=== PATIENT | female | born 2000 | race Caucasian/White ===

== ENCOUNTER → 2020-05-13 08:33 | Outpatient (CLI) | payer OTHER, SELFPAY ==
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
--- NOTE | ~2020-05-13 | CT_ITS ---
EXAMINATION: CT thoracic spine wo con EXAM DATE: 05/13/2020 09:19 INDICATION: Abnormal x-ray, degenerative disc disease. TECHNIQUE: Spiral CT thoracic spine wo con was performed without contrast. Axial, coronal and sagit calista images were reviewed. The dose-length product (DLP) for this examination was 581.35 mGy-cm. The exposure was tailored according to patient size (auto mA exposure control), and iterative reconstruc tion (ASIR) was used as additional dose reduction technique. There is no prior study for comparison. FINDINGS: There are 12 thoracic rib-bearing vertebral bodies. There is minimal compression of the sup erior endplate of T10, an old minimal compression fracture. Some small Schmorl's nodes at T9-10 endpl ates. The vertebral body and disc heights are otherwise well maintained. The vertebral bodies are ali gned in the AP dimension. The neural foramen are widely patent. Central canal is patent. Paraspinal s oft tissue is unremarkable. Facet joints are unremarkable. IMPRESSION: Minimal old compression fracture superior endplate of T10 and mild T9-T10 disc disease. Reviewed, dictated and finalized at location A.
== END ==
PROVIDERS: PCP Nurse Practitioner Family; Visit Provider Nurse Practitioner Family
DX: R93.7 Abnormal findings on diagnostic imaging of other parts of musculoskeletal system (principal); Z87.311 Personal history of (healed) other pathological fracture
CPT/HCPCS: 70551; 72128

== ENCOUNTER 2020-05-13 13:21 | Outpatient (CLI) | payer OTHER, SELFPAY ==
--- NOTE | ~2020-05-13 | US_ITS ---
EXAMINATION: US pelvic complete w TV DATE: 05/13/2020 13:46 INDICATION: Pelvic pain Comparison:01/28/2018 TECHNIQUE: Multiple transabdominal and endovaginal sonographic images of the pelvis performed. FINDINGS: The uterus measures 7 x 3.2 x 4.8 cm. IUD present in the endometrium. The endometrial compl ex measures 3.5 mm. The right ovary measures 3.1 x 1.1 x 1.8 cm and the left ovary measures 3.3 x 2.9 x 3.1 cm. There ar e small follicles in each ovary. There is a complicated left ovarian cyst measuring 1.9 cm There is no free fluid in the pelvis. There are no abnormal masses seen on either side. IMPRESSION: 1. Complicated left ovarian cyst measuring 1.9 cm. Reviewed, dictated and finalized at location B.
== END 2020-05-13 13:22 ==
LOC: MICIMG 13:21
PROVIDERS: PCP Nurse Practitioner Family; Visit Provider Nurse Practitioner Family
DX: R10.2 Pelvic and perineal pain (principal); G89.29 Other chronic pain; N83.202 Unspecified ovarian cyst, left side
CPT/HCPCS: 76830; 76856

== ENCOUNTER 2021-05-28 07:46 | Outpatient (RCR) | payer OTHER, MEDICAID, SELFPAY ==
[2021-05-28] MEDS: RHO(D) IMMUNE GLOBULIN 300 MCG/2 ML SYRINGE IM (09:45)
== END 2021-05-28 07:49 | disposition home or self-care (01) ==
LOC: ANHLAB 07:46
PROVIDERS: PCP Nurse Practitioner Family; Visit Provider Obstetrics & Gynecology
DX: Z29.13 Encounter for prophylactic Rho(D) immune globulin (principal); O36.0190 Maternal care for anti-D [Rh] antibodies, unspecified trimester, not applicable or unspecified; O20.0 Threatened abortion; Z3A.00 Weeks of gestation of pregnancy not specified
CPT/HCPCS: 36415; 85461; 90384; 96372; J2790

== ENCOUNTER 2021-05-28 09:24 | Outpatient (RCR) | payer OTHER, MEDICAID, SELFPAY ==
[2021-05-21 16:56] LABS: Beta HCG Quantitative 169.09 mIU/ML
== END 2021-08-19 23:59 | disposition home or self-care (01) ==
LOC: ANHLAB 09:24
PROVIDERS: PCP Nurse Practitioner Family; Visit Provider Obstetrics & Gynecology
DX: Z29.13 Encounter for prophylactic Rho(D) immune globulin (principal); O36.0130 Maternal care for anti-D [Rh] antibodies, third trimester, not applicable or unspecified; Z3A.00 Weeks of gestation of pregnancy not specified
CPT/HCPCS: 36415; 84702; 85461

== ENCOUNTER 2021-06-02 04:41 | Emergency (ER) | payer OTHER, MEDICAID, SELFPAY ==
--- NOTE | ~2021-06-02 | US_ITS ---
EXAMINATION: US OB <= 14 weeks fetus DATE: 06/02/2021 06:32 INDICATION: Vaginal bleeding. Abdominal pain. TECHNIQUE: Real-time transabdominal and transvaginal pelvic ultrasound was performed. COMPARISON: Ultrasound 05/13/2020 FINDINGS: TRANSABDOMINAL ULTRASOUND: The uterus measures 8.4 x 4.3 x 5.9 cm. TRANSVAGINAL ULTRASOUND: There is an intrauterine gestational sac with mean diameter of 10 mm, which correlates with an estimated gestational age of 5 weeks and 4 days +/- 4 days. A yolk sac is identifi ed. No pole is identified. There is a small subchorionic hematoma. The right ovary measures 1.4 x 1.1 x 0.9 cm. The left ovary measures 2.7 x 2.2 x 2.3 cm. There is no free fluid in the pelvis. IMPRESSION: 1. Single intrauterine gestation with estimated date of delivery of 01/29/2022. 2. Small subchorionic hematoma. Reviewed, dictated and finalized at location A.
[2021-06-02 04:51] VITALS: BP 119/61; PULSE 103; RESP 18; TEMP 36.7; O2SAT 98
--- NOTE | 2021-06-02 04:57 | ED.GENADULT ---
HPI - General Adult General Chief complaint: Nausea/Vomiting/Diarrhea <DO [place] Friend Last Filed: 06/02/21 14:24> Stated complaint: Vomiting, 7 weeks preg, vaginal bleeding <Stephan Ochoa DO - Last Filed: 06/02/21 14:24> Time Seen by Provider: 06/02/21 04:49 <Stephan Ochoa DO - Last Filed: 06/02/21 14:24> Source: RN notes reviewed <Stephan Ochoa DO - Last Filed: 06/02/21 14:24> History of Present Illness HPI narrative: Patient presents emergency department from home for vaginal bleeding. Patient is G1, P0 [facility] [place] Patient states she is approximately 7 weeks she states she woke up this evening around 1230 with nausea and vomiting she states she had numerous episodes of nausea and vomiting as well as some diarrhea. She states that the last time she gone to use the restroom she had noted vaginal bleeding that was bright red in nature at that time she came in emergency department for further evaluation she states nausea is improved at this time notes mild abdominal cramping states she is not taking medication at home for the symptoms she denies any fevers or chills chest pain shortness of breath or any other symptoms. Patient states she did receive RhoGam last week as she had fallen secondary to her fall he contacted [employer] and had received RhoGam <Stephan Ochoa DO - Last Filed: 06/02/21 14:24> Related Data Home medications: Home Medications Medication Instructions Recorded Confirmed escitalopram oxalate 10 mg PO DAILY 06/02/21 <DO [place] Friend Last Filed: 06/02/21 14:24> Allergies/adverse reactions: Allergies Allergy/AdvReac Type Severity Reaction Status Date / Time Penicillins Allergy Unknown Unknown Verified 06/02/21 05:28 <Stephan Ochoa DO - Last Filed: 06/02/21 14:24> Review of Systems Review of Systems: Gen.: Denies fevers or chills ENT: Denies congestion Respiratory: Denies shortness of breath or cough CV: Denies chest pain or palpitations GI: See HPI reports vaginal bleeding Musculoskeletal: Denies back pain or muscle pain Neuro: Denies numbness, tingling, weakness or focal weakness Skin: Denies rash Except as documented, all other systems reviewed and negative <Stephan Ochoa DO - Last Filed: 06/02/21 14:24> [facility] Past Medical History Medical History: Medical History (Updated 06/02/21 @ 10:45 by Mai Gonzalez MD) Patient denies significant medical history <Stephan Ochoa DO - Last Filed: 06/02/21 14:24> Family History Family History: Family History (Updated 11/12/16 @ 15:38 by DOCTOR UNKNOWN) Grandparent Diabetes mellitus Hypertension Cerebrovascular accident Father Hypertension Other Carcinoma of colon <Stephan Ochoa DO - Last Filed: 06/02/21 14:24> Social History Social History: Social History Smoking status: Never smoker Alcohol intake: never <Stephan Ochoa DO - Last Filed: 06/02/21 14:24> Exam Narrative: APPEARANCE: No acute distress, nontoxic, resting in bed EYES: EOMI HEENT: Normocephalic, atraumatic, OMM RESPIRATORY: No respiratory distress Clear to auscultation bilaterally with no rhonchi wheezing or rales. CARDIOVASCULAR: Regular rate and rhythm without murmurs rubs or gallops. ABDOMINAL: Soft, nontender, nondistended, no rebound or guarding : Normal external exam small nondark maroon blood clots in vaginal canal cervix is closed MUSCULOSKELETAl: Moves all extremities. No clubbing, cyanosis or edema. NEURO: Awake and alert. Following commands, speech normal, no focal deficits SKIN:: Warm, dry. No rashes lesions or abrasions PSYCHIATRIC: Normal affect/mood, <Stephan Ochoa DO - Last Filed: 06/02/21 14:24> Course Course Emergency Course: Care turned over to Dr. Vanessa at shift change awaiting ultrasound results and further disposition <Stephan
[2021-06-02 05:17] LABS: Basophils Percent Auto 0.2 % (0.2-1.2); Eosinophils Absolute Auto 0.1 K/mm3 (0-0.3); Eosinophils Percent Auto 0.4 % (0-4.4); Hematocrit 40.7 % (37.0-47.0); Immature Granulocyte Absolute 0.08 K/mm3 (0.00-0.031); Immature Granulocyte Percent A 0.5 % (0-0.5); Lymphocytes Absolute Auto 0.41 K/mm3 (0.9-3.2); Lymphocytes Percent Auto 2.5 % (18.3-44.2); Mean Corpuscular HGB Conc 34.4 g/dl (32-36); Mean Corpuscular Hemoglobin 29.6 pg (26-34); Mean Platelet Volume 11.2 fl (7.4-10.4); Monocytes Absolute Auto 0.8 K/mm3 (0.1-0.6); Monocytes Percent Auto 4.8 % (2.6-8.5); Neutrophils Absolute Auto 14.8 K/mm3 (1.3-6.7); Neutrophils Percent Auto 91.6 % (45.5-73.1); Platelet Count Result 175 k/mm3 (150-375); Red Blood Count 4.73 M/mm3 (4.2-5.4); Red Cell Distribution Width 11.9 % (11.5-14.5); White Blood Count 16.1 K/mm3 (4.5-10.0)
[2021-06-02 05:22] LABS: Add Urine Microscopic? YES; Appearance Urine Clear (Clear); Bacteria Urine Trace /hpf; Bilirubin Urine Negative (Negative); Blood Urine 3+ (Negative); Color Urine Yellow (Yellow); Glucose Urine UA Negative (Negative); Ketones Urine 1+ mg/dL (Negative); Leukocyte Esterase Ur Negative LEU/UL (Negative); Mucus Urine Few /lpf; Nitrate Urine Negative (Negative); Protein Urine 1+ mg/dL (Negative); RBC Urine >75 /hpf (0-2); Specific Grav Ur 1.025 (1.001-1.035); Squamous Epithelial Cell Urine Few /hpf (Few); Urobilinogen Urine Negative mg/dL (<2.0); WBC Urine 0-3 /hpf
[2021-06-02 05:29] LABS: Alanine Aminotransferase 22 U/L (4-35); Albumin Level 4.7 g/dL (3.5-5.1); Alkaline Phosphatase 72 U/L (38-126); Anion Gap 11 mmol/L (8-16); Aspartate Amino Transferase 29 U/L (14-36); Blood Urea Nitrogen 15 mg/dL (7-17); Calcium 8.7 mg/dL (8.4-10.2); Carbon Dioxide 23 mmol/L (22-30); Chloride 102 mmol/L (98-107); Estimated CRCL calculation 117 ml/min; Estimated Glomerular Filt Rate > 60; Glucose 126 mg/dL (65-110); Lipase 77 U/L (23-300); Sodium 136 mmol/L (137-145)
[2021-06-02] MEDS: SODIUM CHLORIDE 0.9% IV 1,000 ML 999 ML IV CONT ×2 (05:32→06:49)
--- NOTE | 2021-06-02 05:33 | PC.NURSE ---
awaiting US tech arrival.
--- NOTE | 2021-06-02 05:51 | PC.NURSE ---
Pt reports she takes lexapro 10 mg/day and a vitamin. also c/o abd cramping at present, but no active vomiting since arrival. a/o x 4. family at bedside. call light in reach. awaiting US.
--- NOTE | 2021-06-02 06:39 | PC.NURSE ---
Pelvic exam done by ED MD Ochoa, with this RN as inspector fibrous wallboard.
[2021-06-02] MEDS: PROMETHAZINE HCL 25 MG/ML AMPUL 12.5 MG IV PUSH (06:50)
[2021-06-02 06:55] VITALS: BP 113/56; PULSE 82; RESP 16; O2SAT 100
[2021-06-02 10:57] VITALS: BP 106/53; PULSE 76; RESP 16
== END 2021-06-02 10:57 | disposition home or self-care (01) ==
PROVIDERS: Emergency Provider Emergency Medicine; PCP Nurse Practitioner Family
DX: O20.0 Threatened abortion (principal); O21.9 Vomiting of pregnancy, unspecified; Z3A.01 Less than 8 weeks gestation of pregnancy
CPT/HCPCS: 36415; 76801; 80053; 81001; 81025; 83690; 84702; 85025; 96361; 96374; 96375; 99284; J0131; J2550; J7030

== ENCOUNTER 2021-06-03 19:06 | Emergency (ER) | payer OTHER, MEDICAID, SELFPAY ==
[2021-06-03 19:27] VITALS: BP 127/77; RESP 20; TEMP 36.2; O2SAT 99
--- NOTE | 2021-06-03 19:39 | ED.FEMALEGU ---
HPI - Female Genitourinary General Chief complaint: Vaginal Bleeding <Mary Beck MD - Last Filed: 06/03/21 20:51> Stated complaint: miscarriage <Mary Beck MD - Last Filed: 06/03/21 20:51> Time Seen by Provider: 06/03/21 19:32 <Mary Beck MD - Last Filed: 06/03/21 20:51> Source: patient <Mary Beck MD - Last Filed: 06/03/21 20:51> Mode of arrival: ambulatory <Mary Beck MD - Last Filed: 06/03/21 20:51> Limitations: no limitations <MD Dayton Messina Last Filed: 06/03/21 20:51> History of Present Illness HPI Narrative: Patient is 20 years old white female presents with vaginal bleeding. Patient is probably 5 weeks , 1, para 0, 0, presents with sudden onset of vaginal bleeding with lower abdominal discomfort. Patient denies any fever, chills, nausea, vomiting. <Mary Beck MD - Last Filed: 06/03/21 20:51> Related Data Home medications: Home Medications Medication Instructions Recorded Confirmed escitalopram oxalate 10 mg PO DAILY 06/02/21 <Mary Beck MD - Last Filed: 06/03/21 20:51> Allergies/Adverse reactions: Allergies Allergy/AdvReac Type Severity Reaction Status Date / Time Penicillins Allergy Unknown Unknown Verified 06/02/21 05:28 <MD Dayton Messina Last Filed: 06/03/21 20:51> Review of Systems Review of Systems: CONSTITUTIONAL: Denies fever, chills, or sweats. EYES: Denies visual changes, redness, or discharge. ENT: Denies rhinorrhea, congestion, sore throat, or otalgia. CARDIOVASCULAR: Denies chest pain, palpitations, or edema. RESPIRATORY: Denies cough or dyspnea. GASTROINTESTINAL: Denies abdominal pain, nausea, vomiting, or diarrhea. GENITOURINARY: Denies dysuria or hematuria. SKIN: Denies rash or itching. MUSCULOSKELETAL: Denies back pain, joint pain, or myalgia. NEUROLOGIC: Denies headache, numbness, or weakness. PSYCHIATRIC: Denies anxiety or depression. <MD Dayton Messina Last Filed: 06/03/21 20:51> [facility] Past Medical History Medical History: Medical History Patient denies significant medical history <Mary Beck MD - Last Filed: 06/03/21 20:51> Family History Family History: Family History Grandparent Diabetes mellitus Hypertension Cerebrovascular accident Father Hypertension Other Carcinoma of colon <Mary Beck MD - Last Filed: 06/03/21 20:51> Social History Social History: Social History Smoking status: Never smoker Alcohol intake: never <Mary Beck MD - Last Filed: 06/03/21 20:51> Exam Narrative: General appearance: Well-developed, well-nourished, in tears Skin: Normal color Head: Normocephalic, nontraumatic Eyes: Clear conjunctiva ENT: Oropharynx normal, ears normal, nose normal Neck: Supple, nontender Chest and respiratory: Airway patent, no respiratory distress, no accessory muscle use Heart: Regular rate/rhythm Abdomen: Soft, nontender, no organomegaly, quiet bowel sounds Vascular: Normal peripheral pulses, normal capillary refill. 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
[2021-06-03 20:00] LABS: Basophils Percent Auto 0.4 % (0.2-1.2); Eosinophils Absolute Auto 0.1 K/mm3 (0-0.3); Eosinophils Percent Auto 2.8 % (0-4.4); Hematocrit 40.6 % (37.0-47.0); Hemoglobin 13.5 g/dL (12.0-15.0); Immature Granulocyte Absolute 0.01 K/mm3 (0.00-0.031); Immature Granulocyte Percent A 0.2 % (0-0.5); Lymphocytes Absolute Auto 1.88 K/mm3 (0.9-3.2); Lymphocytes Percent Auto 37.8 % (18.3-44.2); Mean Corpuscular HGB Conc 33.3 g/dl (32-36); Mean Corpuscular Hemoglobin 29.5 pg (26-34); Mean Corpuscular Volume 88.8 fl (80-100); Mean Platelet Volume 11.3 fl (7.4-10.4); Monocytes Absolute Auto 0.7 K/mm3 (0.1-0.6); Monocytes Percent Auto 14.1 % (2.6-8.5); Neutrophils Absolute Auto 2.2 K/mm3 (1.3-6.7); Neutrophils Percent Auto 44.7 % (45.5-73.1); Platelet Count Result 178 k/mm3 (150-375); Red Blood Count 4.57 M/mm3 (4.2-5.4); Red Cell Distribution Width 12.3 % (11.5-14.5)
[2021-06-03 21:48] VITALS: BP 120/63; PULSE 78; RESP 18; O2SAT 98
== END 2021-06-03 22:00 | disposition home or self-care (01) ==
PROVIDERS: Emergency Medicine; Emergency Provider Emergency Medicine; PCP Nurse Practitioner Family
DX: O46.91 Antepartum hemorrhage, unspecified, first trimester (principal); Z3A.01 Less than 8 weeks gestation of pregnancy
CPT/HCPCS: 36415; 84702; 85025; 99284

== ENCOUNTER 2021-10-05 13:16 | Observation (INO) | payer OTHER, MEDICAID, SELFPAY ==
--- NOTE | 2021-10-05 13:16 | OBADM ---
This patient, Lance Turner, admitted to the OB room OB Post 116 for observation. Patient/family oriented to hospital policies and general routines including ID bracelet, bed and alarms, visiting hours, pain management, procedures, bathroom and other care routines, personal items, smoking policy, room service/diet, and visiting hours. Patient/Family are encouraged to report perceived risks to care and to ask questions if they do not understand what they are told or what they should do.
[2021-10-05 13:48] VITALS: BP 132/70; PULSE 86; TEMP 36.6
[2021-10-05 13:50] VITALS: BMI 24.9
[2021-10-05 14:01] VITALS: BP 124/55; PULSE 79
[2021-10-05 14:21] VITALS: BP 132/70; PULSE 86
[2021-10-05 14:25] LABS: Add Urine Microscopic? YES; Appearance Urine Clear (Clear); Bacteria Urine Trace /hpf; Bilirubin Urine Negative (Negative); Blood Urine Negative (Negative); Color Urine Straw (Yellow); Glucose Urine UA Negative (Negative); Ketones Urine Negative (Negative); Leukocyte Esterase Ur Trace LEU/UL (Negative); Mucus Urine Rare /lpf; Nitrate Urine Negative (Negative); Protein Urine Negative (Negative); RBC Urine 0-2 /hpf (0-2); Squamous Epithelial Cell Urine Few /hpf (Few); Urobilinogen Urine Negative mg/dL (<2.0); WBC Urine 0-3 /hpf
[2021-10-05 14:26] LABS: Specific Grav Ur 1.004 (1.001-1.035)
--- NOTE | 2021-10-05 14:53 | PC.NURSE ---
Discharge medications clarified with Dr. Lopez. 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
--- NOTE | 2021-10-29 21:56 | P.PNOB_ITS ---
OB - Triage/Final Diagnosis Visit Information Comments/Additional reasons for admission: I have assessed the risk for this patient, Lance Turner, and determined that she would benefit from observation care. Evaluation Laboratory results: Laboratory Tests 10/05/21 14:12 Urine Color Straw Urine Appearance Clear Urine pH 8.0 Ur Specific [place] 1.004 Urine Protein Negative Urine Glucose (UA) Negative Urine Ketones Negative Ur Blood (Man) Negative Urine Nitrate Negative Urine Bilirubin Negative Urine Urobilinogen Negative Leukocyte Esterase Rfl Trace H Urine RBC 0-2 Urine WBC 0-3 Ur Squamous Epith Cells Few Urine Bacteria Trace Hyaline Casts 1-2 Urine Mucus Rare Final Diagnosis (1) Amniotic fluid leaking: Code(s): O42.90 - Premature rupture of membranes, unspecified as to length of time between rupture and onset of labor, unspecified weeks of gestation Status: Acute
== END 2021-10-05 15:10 | disposition home or self-care (01) ==
PROVIDERS: Admitting Provider Obstetrics & Gynecology; PCP Nurse Practitioner Family; Visit Provider Obstetrics & Gynecology
DX: O42.912 Preterm premature rupture of membranes, unspecified as to length of time between rupture and onset of labor, second trimester (principal); Z3A.23 23 weeks gestation of pregnancy
CPT/HCPCS: 59025; 81001; G0378; G0379

== ENCOUNTER 2021-10-29 20:18 | Observation (INO) | payer OTHER, MEDICAID, SELFPAY ==
[2021-10-29 20:46] VITALS: BP 141/73; PULSE 86
[2021-10-29 20:49] LABS: Add Urine Microscopic? NO; Appearance Urine Clear (Clear); Bilirubin Urine Negative (Negative); Blood Urine Negative (Negative); Color Urine Straw (Yellow); Glucose Urine UA Negative (Negative); Ketones Urine Negative (Negative); Leukocyte Esterase Ur Negative LEU/UL (NEGATIVE); Nitrate Urine Negative (Negative); Protein Urine Negative (Negative); Urobilinogen Urine Negative mg/dL (<2.0)
[2021-10-29 20:51] LABS: Specific Grav Ur 1.003 (1.001-1.035)
[2021-10-29 21:01] VITALS: BP 142/69; PULSE 88
[2021-10-29 21:16] VITALS: BP 135/68; PULSE 82
[2021-10-29 21:31] VITALS: BP 132/63; PULSE 87
[2021-10-29 21:46] VITALS: BP 136/70; PULSE 76
[2021-10-29] MEDS: TERBUTALINE SULFATE 1 MG/ML VIAL 0.25 MG SUB-Q ×2 (22:14→23:17)
[2021-10-29 22:36] VITALS: BMI 11.0
--- NOTE | 2021-10-29 22:37 | OBADM ---
This patient, Lance Turner, admitted to the OB room OB Post 113 for observation. Patient/family oriented to hospital policies and general routines including ID bracelet, bed and alarms, visiting hours, pain management, procedures, bathroom and other care routines, personal items, smoking policy, room service/diet, and visiting hours. Patient/Family are encouraged to report perceived risks to care and to ask questions if they do not understand what they are told or what they should do.
[2021-10-29 23:24] LABS: Fetal Fibronectin Negative
[2021-10-30 01:02] VITALS: BP 129/53; PULSE 89
--- NOTE | 2021-10-30 01:07 | PC.NURSE ---
Jesenia Prieto notified of decrease in contractions, Negative FFN and SVE of 1cm outer os and closed inner os, cervix is still thick. OK to dc home.
--- NOTE | 2021-11-05 07:22 | P.PNOB_ITS ---
OB - Triage/Final Diagnosis Visit Information Date of evaluation: 10/29/21 Reason for evaluation: threatened labor Comments/Additional reasons for admission: I have assessed the risk for this patient, Lance Roblesjamesvanessa, and determined that she would benefit from o bservation care. Evaluation Laboratory results: Laboratory Tests 10/29/21 10/29/21 20:38 21:52 Urine Color Straw Urine Appearance Clear Urine pH 7.0 Ur Specific [place] 1.003 Urine Protein Negative Urine Glucose (UA) Negative Urine Ketones Negative Ur Blood (Man) Negative Urine Nitrate Negative Urine Bilirubin Negative Urine Urobilinogen Negative Ur Leukocyte Esterase Negative Fibronectin Negative
== END 2021-10-30 01:16 | disposition home or self-care (01) ==
PROVIDERS: Advanced Practice Midwife; Admitting Provider Obstetrics & Gynecology; PCP Nurse Practitioner Family; Visit Provider Obstetrics & Gynecology
DX: O47.03 False labor before 37 completed weeks of gestation, third trimester (principal); Z3A.27 27 weeks gestation of pregnancy
CPT/HCPCS: 81003; 82731; 87086; 87088; 96372; G0378; G0379; J3105

== ENCOUNTER 2021-11-01 17:58 | Observation (INO) | payer OTHER, MEDICAID, SELFPAY ==
[2021-11-01] VITALS (9 sets, daily range): BP systolic 117–128; BP diastolic 62–70; PULSE 69–87; O2SAT 98–100
--- NOTE | 2021-11-25 21:20 | PM.OBTRLD ---
OB - Triage/Final Diagnosis Visit Information Comments/Additional reasons for admission: I have assessed the risk for this patient, Lance Turner, and determined that she would benefit from observation care. Final Diagnosis (1) Vaginal discharge during in third trimester: Code(s): O26.893 - Other specified related conditions, third trimester; N89.8 - Other specified noninflammatory disorders of vagina Status: Acute
== END 2021-11-01 20:30 | disposition home or self-care (01) ==
PROVIDERS: Admitting Provider Obstetrics & Gynecology; PCP Nurse Practitioner Family; Visit Provider Obstetrics & Gynecology
DX: O26.893 Other specified pregnancy related conditions, third trimester (principal); N89.8 Other specified noninflammatory disorders of vagina; Z3A.00 Weeks of gestation of pregnancy not specified
CPT/HCPCS: G0378; G0379

== ENCOUNTER 2021-11-05 11:20 | Outpatient (CLI) | payer OTHER, MEDICAID, SELFPAY ==
[2021-11-05 13:05] LABS: Basophils Percent Auto 0.3 % (0.2-1.2); Eosinophils Absolute Auto 0.1 K/mm3 (0-0.3); Hematocrit 36.6 % (37.0-47.0); Hemoglobin 11.9 g/dL (12.0-15.0); Immature Granulocyte Absolute 0.04 K/mm3 (0.00-0.031); Immature Granulocyte Percent A 0.5 % (0-0.5); Lymphocytes Absolute Auto 1.41 K/mm3 (0.9-3.2); Lymphocytes Percent Auto 18.2 % (18.3-44.2); Mean Corpuscular HGB Conc 32.5 g/dl (32-36); Mean Corpuscular Hemoglobin 29.2 pg (26-34); Mean Corpuscular Volume 89.7 fl (80-100); Mean Platelet Volume 11.4 fl (7.4-10.4); Monocytes Absolute Auto 0.7 K/mm3 (0.1-0.6); Monocytes Percent Auto 8.5 % (2.6-8.5); Neutrophils Absolute Auto 5.5 K/mm3 (1.3-6.7); Neutrophils Percent Auto 71.5 % (45.5-73.1); Platelet Count Result 179 k/mm3 (150-375); Red Blood Count 4.08 M/mm3 (4.2-5.4); Red Cell Distribution Width 13.2 % (11.5-14.5); White Blood Count 7.7 K/mm3 (4.5-10.0)
[2021-11-05 13:14] LABS: Glucose 1 Hour PP 50gm Dose 118 mg/dL
[2021-11-05 13:55] LABS: HIV 1/2 Ab P24 Ag Result Negative (Negative)
[2021-11-05] MEDS: RHO(D) IMMUNE GLOBULIN 300 MCG/2 ML SYRINGE IM (17:12)
== END 2021-11-05 11:21 | disposition home or self-care (01) ==
PROVIDERS: PCP Nurse Practitioner Family; Visit Provider Advanced Practice Midwife
DX: Z34.93 Encounter for supervision of normal pregnancy, unspecified, third trimester (principal); Z3A.00 Weeks of gestation of pregnancy not specified
CPT/HCPCS: 36415; 82947; 85025; 85461; 86703; 90384; 96372; G0432; J2790

== ENCOUNTER 2021-11-28 03:06 | Observation (INO) | payer OTHER, MEDICAID, SELFPAY ==
[2021-11-28] VITALS (42 sets, daily range): BP systolic 117–134; BP diastolic 59–72; PULSE 63–97; O2SAT 99–100; BMI 25.6
--- NOTE | 2021-11-28 03:26 | OBADM ---
This patient, Lance Turner, admitted to the OB room OB Post 117 for observation. Patient/family oriented to hospital policies and general routines including ID bracelet, bed and alarms, visiting hours, pain management, procedures, bathroom and other care routines, personal items, smoking policy, room service/diet, and visiting hours. Patient/Family are encouraged to report perceived risks to care and to ask questions if they do not understand what they are told or what they should do.
[2021-11-28] MEDS: TERBUTALINE SULFATE 1 MG/ML VIAL 0.25 MG SUB-Q (03:57)
[2021-11-28] MEDS: TERBUTALINE SULFATE 1 MG/ML VIAL (06:27)
--- NOTE | 2021-12-28 16:52 | PM.OBTRLD ---
OB - Triage/Final Diagnosis Visit Information Comments/Additional reasons for admission: I have assessed the risk for this patient, Lance Turner, and determined that she would benefit from observation care. Final Diagnosis (1) False labor: Code(s): O47.9 - False labor, unspecified Status: Acute
== END 2021-11-28 06:33 | disposition home or self-care (01) ==
PROVIDERS: Admitting Provider Obstetrics & Gynecology; PCP Nurse Practitioner Family; Visit Provider Obstetrics & Gynecology
DX: O47.03 False labor before 37 completed weeks of gestation, third trimester (principal); Z3A.31 31 weeks gestation of pregnancy
CPT/HCPCS: 96372; G0378; G0379; J3105

== ENCOUNTER 2021-11-28 18:32 | Observation (INO) | payer OTHER, MEDICAID, SELFPAY ==
[2021-11-28] VITALS (37 sets, daily range): BP systolic 115–133; BP diastolic 54–92; PULSE 75–103; O2SAT 98–100; BMI 25.6
[2021-11-28] MEDS: TERBUTALINE SULFATE 1 MG/ML VIAL 0.25 MG SUB-Q (20:21)
[2021-11-28 21:31] LABS: Fetal Fibronectin Negative
[2021-11-28] MEDS: BETAMETHASONE SOD PHOS/ACETATE 30 MG/5 ML VIAL 12 MG IM (21:58)
--- NOTE | 2021-12-02 18:09 | P.PNOB_ITS ---
OB - Triage/Final Diagnosis Visit Information Date of evaluation: 11/28/21 Reason for evaluation: threatened labor Comments/Additional reasons for admission: I have assessed the risk for this patient, Lance Beny Turner, and determined that she would benefit from o bservation care. Evaluation Laboratory results: Laboratory Tests 11/28/21 20:45 Fibronectin Negative
== END 2021-11-28 22:20 | disposition home or self-care (01) ==
PROVIDERS: Advanced Practice Midwife; Admitting Provider Obstetrics & Gynecology; PCP Nurse Practitioner Family; Visit Provider Obstetrics & Gynecology
DX: O47.03 False labor before 37 completed weeks of gestation, third trimester (principal); Z3A.31 31 weeks gestation of pregnancy
CPT/HCPCS: 82731; 96372; G0378; G0379; J0702; J3105

== ENCOUNTER 2021-11-29 21:47 | Outpatient (CLI) | payer OTHER, MEDICAID, SELFPAY ==
[2021-11-29] MEDS: BETAMETHASONE SOD PHOS/ACETATE 30 MG/5 ML VIAL 12 MG IM (22:19)
== END 2021-11-29 22:15 | disposition home or self-care (01) ==
LOC: ANHOBOP 21:54 → ANHLDR 21:54
PROVIDERS: PCP Nurse Practitioner Family; Visit Provider Obstetrics & Gynecology
DX: O36.8990 Maternal care for other specified fetal problems, unspecified trimester, not applicable or unspecified (principal); Z3A.00 Weeks of gestation of pregnancy not specified
CPT/HCPCS: 96372; 99199; J0702

== ENCOUNTER 2021-12-12 19:18 | Observation (INO) | payer OTHER, MEDICAID, SELFPAY ==
[2021-12-12 19:37] VITALS: BP 143/73; PULSE 89
[2021-12-12 19:45] VITALS: BP 140/72; PULSE 84
[2021-12-12 20:00] VITALS: BP 138/76; PULSE 87; BMI 25.2
[2021-12-12 20:15] VITALS: BP 139/71; PULSE 85
[2021-12-12 20:30] VITALS: BP 134/67; PULSE 84
[2021-12-12 20:45] VITALS: BP 132/63; PULSE 81
--- NOTE | 2021-12-12 21:06 | OBADM ---
This patient, Lance Turner, admitted to the OB room OB Post 115 for observation. Patient/family oriented to hospital policies and general routines including ID bracelet, bed and alarms, visiting hours, pain management, procedures, bathroom and other care routines, personal items, smoking policy, room service/diet, and visiting hours. Patient/Family are encouraged to report perceived risks to care and to ask questions if they do not understand what they are told or what they should do.
--- NOTE | 2021-12-17 07:37 | P.PNOB_ITS ---
OB - Triage/Final Diagnosis Visit Information Date of evaluation: 12/15/21 Reason for evaluation: threatened labor Comments/Additional reasons for admission: I have assessed the risk for this patient, Lance Turner, and determined that she would benefit from o bservation care.
== END 2021-12-12 21:25 | disposition home or self-care (01) ==
PROVIDERS: Admitting Provider Obstetrics & Gynecology; PCP Nurse Practitioner Family; Visit Provider Obstetrics & Gynecology
DX: O47.03 False labor before 37 completed weeks of gestation, third trimester (principal); Z3A.33 33 weeks gestation of pregnancy
CPT/HCPCS: G0378; G0379

== ENCOUNTER 2021-12-31 14:58 | Observation (INO) | payer OTHER, MEDICAID, SELFPAY ==
--- NOTE | 2022-01-07 07:25 | P.PNOB_ITS ---
OB - Triage/Final Diagnosis Visit Information Date of evaluation: 12/31/21 Reason for evaluation: threatened labor Comments/Additional reasons for admission: I have assessed the risk for this patient, Lance Turner, and determined that she would benefit from o bservation care.
== END 2021-12-31 16:40 | disposition home or self-care (01) ==
PROVIDERS: Admitting Provider Obstetrics & Gynecology; PCP Nurse Practitioner Family; Visit Provider Obstetrics & Gynecology
DX: O26.899 Other specified pregnancy related conditions, unspecified trimester (principal); R10.2 Pelvic and perineal pain; Z3A.00 Weeks of gestation of pregnancy not specified
CPT/HCPCS: 84112; G0378; G0379

== ENCOUNTER 2022-01-02 00:21 | Inpatient (IN) | payer OTHER, MEDICAID, SELFPAY ==
[2022-01-02] VITALS (121 sets, daily range): BP systolic 92–141; BP diastolic 33–114; PULSE 62–134; RESP 16–18; TEMP 35.7–36.9; O2SAT 98–100; BMI 26.4
--- OUTSIDE RECORDS SUMMARY | 2022-01-02 00:45 | XMS_ITS ---
:2000 Author Care Team Providers Name Role Phone Linda Guzman Primary Care Provider Unavailable Allergies Code Code System Name Reaction Severity Status Onset Penicillins Vomiting Mild Active ? Medications Name Status Start Date Stop Date ? ? amoxicillin 875 mg-potassium clavulanate Active ? Not available 125 mg tablet azithromycin 250 mg tablet Active ? Not a vailable BenzEFoam Ultra 9.8 % topical Active ? No t available benzonatate 200 mg capsule Active ? Not a vailable cefdinir 300 mg capsule Active ? Not avai lable cephalexin 500 mg capsule Active ? Not av ailable cephalexin 500 mg tablet Active ? Not mauro ilable Cipro 500 mg tablet Active ? Not availabl e Take 1 tablet every 12 hours by oral route as directed for 5 da ys. clindamycin HCl 300 mg capsule Active ? N ot available clotrimazole-betamethasone 1 %-0.05 % Active ? Not available topical cream cyclobenzaprine 10 mg tablet Active ? Not available Epiduo 0.1 %-2.5 % topical gel with pump Active ? Not available ergocalciferol (vitamin D2) 1,250 mcg Active ? Not available (50,000 unit) capsule escitalopram 10 mg tablet Active ? Not av ailable escitalopram 20 mg tablet Active ? Not av ailable escitalopram 5 mg tablet Active ? Not mauro ilable Fabior 0.1 % topical foam Active ? Not av ailable fluticasone propionate 50 mcg/actuation Active ? Not available nasal spray,suspension methylphenidate ER 27 mg tablet,extended Active ? Not available release 24 hr
--- OUTSIDE RECORDS SUMMARY | 2022-01-02 00:45 | XMS_ITS ---
:2000 Author Care Team Providers Name Role Phone Linda Guzman Primary Care Provider Unavailable Allergies Code Code System Name Reaction Severity Status Onset Penicillins ? ? Active ? Medications Name Status Start Date Stop Date ? ? azithromycin 250 mg tablet Completed ? 09/08 BenzEFoam Ultra 9.8 % topical Completed ? benzonatate 200 mg capsule Completed ? 03/29 cephalexin 500 mg tablet Completed ? 018 clindamycin HCl 300 mg capsule Completed ? 0 01/28/2018 clotrimazole-betamethasone 1 Completed ? %-0.05 % topical cream cyclobenzaprine 10 mg tablet Completed ? 05/2019 Epiduo 0.1 %-2.5 % topical gel Completed ? 0 03/29/2017 with pump ergocalciferol (vitamin D2) 1,250 Completed ? 09/08/2018 mcg (50,000 unit) capsule escitalopram 10 mg tablet Completed 01/28/20182017 escitalopram 20 mg tablet Active ? Not av ailable escitalopram 5 mg tablet Completed ? 017 Fabior 0.1 % topical foam Completed ? 2016 methylphenidate ER 27 mg Completed ? 017 tablet,extended release 24 hr metronidazole 0.75 % vaginal gel Completed ? 08/18/2018 naproxen 500 mg tablet Completed ? 9 oseltamivir 75 mg capsule Completed ? 2016 sulfamethoxazole 800 Completed ? 08/18/2018 mg-trimethoprim 160 mg tablet Problems Name Status Onset Date Source ?
--- NOTE | 2022-01-02 01:07 | LDADM ---
This patient, Lance Turner, was admitted to Labor/Delivery/Recovery 106 on 01/02/22 at 00:21. Plans for labor, pain management and were discussed with patient. Patient/family oriented to hospital policies and general routines including ID bracelet, bed and alarms, visiting hours, pain management, procedures, bathroom and other care routines, personal items, smoking policy, room service/diet and guest tray routines, infant security routines, and visiting hours. Patient/Family are encouraged to report perceived risks to care and to ask questions if they do not understand what they are told or what they should do. See OBIX for further documentation.
[2022-01-02 01:42] LABS: Basophils Percent Auto 0.2 % (0.2-1.2); Eosinophils Absolute Auto 0.1 K/mm3 (0-0.3); Eosinophils Percent Auto 0.7 % (0-4.4); Hematocrit 38.7 % (37.0-47.0); Hemoglobin 12.7 g/dL (12.0-15.0); Immature Granulocyte Absolute 0.03 K/mm3 (0.00-0.031); Immature Granulocyte Percent A 0.3 % (0-0.5); Lymphocytes Absolute Auto 2.31 K/mm3 (0.9-3.2); Mean Corpuscular HGB Conc 32.8 g/dl (32-36); Mean Corpuscular Hemoglobin 28.7 pg (26-34); Mean Corpuscular Volume 87.4 fl (80-100); Mean Platelet Volume 12.4 fl (7.4-10.4); Monocytes Absolute Auto 0.7 K/mm3 (0.1-0.6); Monocytes Percent Auto 7.6 % (2.6-8.5); Neutrophils Absolute Auto 5.8 K/mm3 (1.3-6.7); Neutrophils Percent Auto 65.2 % (45.5-73.1); Platelet Count Result 175 k/mm3 (150-375); Red Blood Count 4.43 M/mm3 (4.2-5.4); Red Cell Distribution Width 12.7 % (11.5-14.5); White Blood Count 8.9 K/mm3 (4.5-10.0)
[2022-01-02] MEDS: ceFAZolin 2 GM/D5W 50 ML 2 GM/50 ML BAG IVPB (01:45)
[2022-01-02] MEDS: LACTATED RINGERS 1,000 ML 125 ML IV CONT ×2 (05:36→08:30)
[2022-01-02] MEDS: OXYTOCIN 30 UNITS/NS 500 ML 30 UNITS/500 ML BAG IV CONT (05:36)
--- NOTE | 2022-01-02 06:23 | WPDANESEPP ---
Anes - Eval Pre Procedure Procedure: Labor epidural Date/Time: 01/02/22 06:23 Surgeon: liliana Preop Diagnosis: pain during labor Pre Op Diagnosis: SROM Patient Data Age: 21 Gender: F Height: 1.75 m Weight: 81 kg Last Vital Signs Temp 35.9 C L 01/02/22 06:08 Pulse 72 01/02/22 06:16 BP 135/72 01/02/22 06:16 Allergies Allergy/AdvReac Type Severity Reaction Status Date / Time Penicillins Allergy Mild Hives Verified 01/02/22 03:21 Home Medications Medication Instructions Recorded Confirmed Type escitalopram oxalate 10 mg PO DAILY 06/02/21 12/31/21 History Vitamin 1 tablet PO DAILY 10/05/21 12/31/21 History aspirin 81 mg PO DAILY 10/05/21 12/31/21 History Laboratory Tests 01/02/22 01/02/22 01/02/22 01:31 01:31 01:31 WBC 8.9 K/mm3 K/mm3 (4.5-10.0) RBC 4.43 M/mm3 M/mm3 (4.2-5.4) Hgb 12.7 g/dL g/dL (12.0-15.0) Hct 38.7 % % (37.0-47.0) MCV 87.4 fl fl (80-100) MCH 28.7 pg pg (26-34) MCHC 32.8 g/dl g/dl (32-36) RDW 12.7 % % (11.5-14.5) Plt Count 175 k/mm3 k/mm3 (150-375) MPV 12.4 fl H fl (7.4-10.4) Immature Gran % (Auto) 0.3 % % (0-0.5) Neut % (Auto) 65.2 % % (45.5-73.1) Lymph % (Auto) 26.0 % % (18.3-44.2) [place] % (Auto) 7.6 % % (2.6-8.5) Eos % (Auto) 0.7 % % (0-4.4) Baso % (Auto) 0.2 % % (0.2-1.2) Lymph # (Auto) 2.31 K/mm3 K/mm3 (0.9-3.2) [place] # (Auto) 0.7 K/mm3 H K/mm3 (0.1-0.6) Eos # (Auto) 0.1 K/mm3 K/mm3 (0-0.3) Baso # (Auto) 0.0 K/mm3 K/mm3 (0.0-0.1) Abs Immat Gran (auto) 0.03 K/mm3 K/mm3 (0.00-0.031) Absolute Neuts (auto) 5.8 K/mm3 K/mm3 (1.3-6.7) Absolute Nucleated RBC 0.0 K/mm3 K/mm3 (0.0-0.012) Nucleated RBC % 0.0 % % (0.0-0.2) RPR Pending Blood Type O Negative Antibody Screen Positive Antibody Identification Passive Due to RH Imm Glob Antigen Identification Cancelled MIRTHA, IgG Interpret Not Performed MIRTHA, Poly Interpret Negative MIRTHA, Complement Interp Not Performed Patient hx anesthesia problems: none Family hx anesthesia problems: none Results Review: All pre-operative results and documents have been reviewed as part of the pre-operative evaluation. [facility] Past Medical History Medical History Patient denies significant medical history Family History Family History (Updated 12/29/21 @ 14:41 by Terell Santiago RN) Grandparent Diabetes mellitus Hypertension Cerebrovascular accident Father Hypertension Sibling Hypothyroidism Social History Social History Smoking status: Never smoker Second hand tobacco smoke exposure: No Alcohol intake: never Substance use: never Spiritual care concerns: No Exam Day of Procedure 01/02/22 06:23
[2022-01-02] MEDS: CALCIUM CARBONATE (TUMS) 500 MG (200 MG ELEMENTAL) PO (06:25)
[2022-01-02 06:33] LABS: Rapid Plasma Reagin Non-Reactive (NonReactive)
[2022-01-02] MEDS: ONDANSETRON INJ 4 MG/2 ML VIAL IV PUSH (07:25)
--- NOTE | 2022-01-02 07:32 | WPDOBADMIT ---
Obstetrics - Admit Note Admission Note: record reviewed. No pertinent additions to the history and/or any subsequent changes in the physical findings that are not consistent with the expected course of the were found. Patient arrived after SROM. GBS Pos. Anticipate vaginal delivery. Additions to the history and/or subsequent changes in the physical findings follow. None.
[2022-01-02] MEDS: miSOPROStol 200 MCG TABLET 1000 MCG RECTAL (11:04)
--- NOTE | 2022-01-02 11:08 | P.PCNOB_ITS ---
OB - Delivery Note Procedure Delivery date: 01/02/22 Procedure: Vaginal delivery Events: Positive Group B Strep (GBS) Induction method: None Delivery augmentation: Pitocin Delivery monitor: External FHT and External Uterine Route of delivery: Laceration Description: Labial (Right) Delivery repair: vicryl Specimen: Yes Quantitative Blood Loss (ml): 215 Anesthesia type: Epidural Disposition: Floor [place] Baby Date of : 01/02/22 Time of : 10:44 Weeks of gestation at delivery: 36 gender: Female Weight (pounds): 6 Weight (ounces): 5 presentation: vertex position: Right Occiput Anterior Placenta delivery description: Spontaneous (heart shaped) Cord Vessel Description: 2 Vessels, Nuchal Cord (x1), Loose and Reduced score one minute: 5 score five minutes: 9 Narrative: mom and baby stable. Infant to warmer then Skin to skin
[2022-01-02] MEDS: OXYTOCIN 30 UNITS/NS 500 ML 30 UNITS/500 ML BAG 125 UNITS IV CONT (11:20)
[2022-01-02] MEDS: ACETAMINOPHEN 325 MG TABLET 650 MG PO ×2 (13:10→23:51)
[2022-01-02] MEDS: WITCH HAZEL 40 PADS 1 PAD TOPICAL (13:10)
[2022-01-02] MEDS: BENZOCAINE 20% AER SPR (*SP) 56 GM CAN 1 SPRAY TOPICAL (13:10)
[2022-01-02] MEDS: IBUPROFEN 600 MG TABLET PO (19:51)
[2022-01-02] MEDS: ESCITALOPRAM 10MG TAB 1 EACH PO (22:30)
--- NOTE | 2022-01-02 22:32 | PHAR ---
VERIFIED ESCITALOPRAM 10MG TABLET IN PHARMACY AND SEN BACK TO OB2. DIRECTIONS ON RX BOTTLE WERE TO TAKE [address], [address] LEE WANTS THE PATIENT TO TAKE ON TABLET DAILY. CONFIRMED WITH RN (MANISH). ENTERED PER PHARMACY COMMUNICATION.
[2022-01-03 01:50] VITALS: BP 141/73; PULSE 95; RESP 16; TEMP 36.1; O2SAT 99
[2022-01-03 04:35] VITALS: BP 112/55; PULSE 64; RESP 16; TEMP 35.9
[2022-01-03 05:09] LABS: Hematocrit 35.2 % (37.0-47.0); Hemoglobin 11.5 g/dL (12.0-15.0)
--- NOTE | 2022-01-03 08:02 | PM.OBPNVD ---
OB - PN: Subj Subjective Date/time seen: 01/03/22 08:02 Patient comments: no complaints and pain well controlled baby status: doing well and nursing well [place] feeding status: exclusively breast feeding Narrative: Would like DC today. OB - PN: Obj Data Labs CBC & Chem 7: 01/03/22 04:42 Labs: Laboratory Results - last 24 hr 01/03/22 01/03/22 04:42 04:42 Hgb 11.5 L Hct 35.2 L Blood Type O Negative Antibody Screen TNP Screen Negative Baby's Blood Type A pos Baby's MIRTHA Positive Doses of RhIg Required 1 OB - PN A/P Assessment and Plan (1) , delivered: Code(s): O80 - Encounter for full-term uncomplicated delivery Status: Acute Plan day: 1 Plan: routine care and discharge home Comments: DC home if baby ok for DC instructions given Time Spent With Patient Time: Total time spent is greater than 50% in coordination of care (as documented) at patient's floor/unit and/or counseling patient: Time with patient: less than 15 minutes Exam Narrative: NAD abdomen soft, nontender, fundus firm below the umbilicus Extremities nontender, 1+ edema
--- NOTE | 2022-01-03 08:04 | PM.DS ---
DS: Admitting Diagnosis Discharge Date 01/03/22 Admitting Diagnosis term IUP DS: Discharge Diagnosis Discharge Diagnosis (1) , delivered: Code(s): O80 - Encounter for full-term uncomplicated delivery Status: Acute DS: Summary Hospital Course Hospital Course: Pt was admitted for delivery. She had an uncomplicated vaginal delivery and course. Status at Discharge Functional status at discharge: independent ambulation Time Spent with Patient Time attestation: Total time spent providing and/or coordinating discharge services: Exam Narrative: NAD abdomen soft, appropriately tender Ext non tender, 1+ edema DS: Data Data Completed and Pending Pending studies at discharge: Pending at discharge 01/02/22 13:28 Surgical [PTH] Routine Labs on day of discharge: Labs from last 24 hours 01/03/22 01/03/22 04:42 04:42 Hgb 11.5 L Hct 35.2 L Blood Type O Negative Antibody Screen TNP Screen Negative Baby's Blood Type A pos Baby's MIRTHA Positive Doses of RhIg Required 1 Discharge Plan Discharge Attending physician on discharge: Baylee Goodwin Discharging Clinician: Baylee Goodwin Anticipated Discharge Date/Time: 01/03/22 14:00 Patient Disposition: Home, Self-Care Activity: pelvic rest Diet: as tolerated Discharge Instructions: ibuprofen 600mg every 6 hours as needed Patient Instructions: Antibiotic Form Stand Alone Forms: General Discharge Information Follow-up/Referrals: Dolores Prieto CNM [Certified Nurse Public Relations Counselor] - 4 Weeks Discharge Medications: Continued Vitamin 1 tablet PO DAILY RF: 0 escitalopram oxalate 10 mg tablet 10 mg PO DAILY RF: 0 Discontinued aspirin 81 mg Tablet 81 mg PO DAILY RF: 0 Date of admission: 01/02/22 00:21 Primary Care Provider: SAM,UMU Admitting Provider: Mervat Lopez Attending physician on admission: Dolores Prieto Condition: Stable
[2022-01-03] MEDS: RHO(D) IMMUNE GLOBULIN 300 MCG/2 ML SYRINGE IM (08:15)
[2022-01-03] MEDS: MULTIVIT/MIN/PREN/FOL AC/IRON TABLET 1 TAB PO (10:20)
[2022-01-03] MEDS: IBUPROFEN 600 MG TABLET PO ×2 (10:20→18:54)
--- NOTE | 2022-01-03 10:42 | WPDANLDPN2 ---
Anes-Prog Note L&D Date/Time: 01/03/22 10:42 Comfortable throughout: labor and delivery Neuraxial method: epidural Epidural/Spinal procedure site: clean & non-tender Neuro status: Neuro function grossly intact. Cardiovascular status: normal Respiratory status: normal Airway patency: baseline Mental status: baseline Post-Op hydration status: normal Vital Signs: Last Vital Signs Temp 96.7 F L 01/03/22 04:35 Pulse 64 01/03/22 04:35 Resp 16 01/03/22 04:35 BP 112/55 L 01/03/22 04:35 Pulse Ox 99 01/03/22 01:50 Pain score (VAS): 10 I/O: Intake & Output 01/02/22 01/03/22 01/03/22 23:59 07:59 15:59 Intake Total 1300 Balance 1300 Post-procedural complaints: none Patient feedback: Patient satisfied with anesthetic care.
[2022-01-03 11:30] VITALS: BP 137/54; PULSE 78; RESP 16; TEMP 36.2; O2SAT 100
[2022-01-03] MEDS: ACETAMINOPHEN 325 MG TABLET 650 MG PO (18:55)
[2022-01-03 19:30] VITALS: BP 127/64; PULSE 66; RESP 16; TEMP 36.3; O2SAT 100
[2022-01-03] MEDS: DOCUSATE SODIUM 100 MG CAPSULE PO (19:44)
[2022-01-04 01:28] VITALS: BP 104/57; PULSE 67; RESP 16; TEMP 36.4; O2SAT 100
[2022-01-04] MEDS: ESCITALOPRAM 10MG TAB 1 EACH PO (04:37)
[2022-01-04 04:39] VITALS: BP 117/74; PULSE 79; RESP 16; TEMP 35.9; O2SAT 100
--- NOTE | 2022-01-04 08:06 | P.PNOB_ITS ---
OB - PN: Subj Subjective Date/time seen: 01/04/22 08:06 Patient comments: no complaints baby status: doing well [place] feeding status: breast and bottle feeding OB - PN: Obj Data Labs CBC & Chem 7: 01/03/22 04:42 OB - PN A/P Plan day: 2 Plan: routine care and discharge home Time Spent With Patient Time: Total time spent is greater than 50% in coordination of care (as documented) at patient's floor/unit and/or counseling patient: Review of Systems Review of Systems: All systems reviewed & are unremarkable except as noted in HPI and below Exam Const: General: cooperative, healthy appearing and comfortable
--- NOTE | 2022-01-04 08:09 | P.DS_ITS ---
DS: Admitting Diagnosis Discharge Date 01/04/22 Admitting Diagnosis SROM OB - DS: Summary OB Procedures : None OB Procedures Intrapartum: Spontaneous Vag Delivery OB Procedures: : None Time Spent with Patient Time attestation: Total time spent providing and/or coordinating discharge services: DS: Data Data Completed and Pending Pending studies at discharge: Pending at discharge 01/02/22 13:28 Surgical [PTH] Routine Discharge Plan Discharge Attending physician on discharge: Baylee Goodwin Discharging Clinician: Baylee Goodwin Anticipated Discharge Date/Time: 01/03/22 14:00 Patient Disposition: Home, Self-Care Activity: pelvic rest Diet: as tolerated Discharge Instructions: ibuprofen 600mg every 6 hours as needed Patient Instructions: Antibiotic Form Stand Alone Forms: General Discharge Information Follow-up/Referrals: Dolores Prieto CNM [Certified Nurse Line Department Supervisor] - 4 Weeks Discharge Medications: Continued Vitamin 1 tablet PO DAILY RF: 0 escitalopram oxalate 10 mg tablet 10 mg PO DAILY RF: 0 Discontinued aspirin 81 mg Tablet 81 mg PO DAILY RF: 0 Date of admission: 01/02/22 00:21 Primary Care Provider: BINH,UMU Admitting Provider: Mervat Lopez Attending physician on admission: Dolores Prieto Condition: Stable
[2022-01-04 12:00] VITALS: BP 123/72; PULSE 78; RESP 16; TEMP 36.6; O2SAT 99
[2022-01-04] MEDS: TETANUS,DIPHTHERIA,AC PERTUSSIS ADULT (0.5 ML) BOOSTRIX IM (17:30)
[2022-01-06 07:50] VITALS: BP 119/72; PULSE 72; RESP 16; TEMP 37.1; O2SAT 99
== END 2022-01-04 17:34 | disposition home or self-care (01) | DRG 807 ==
LOC: ANHLDR 00:50 → ANHOB2 01-03 08:04 → ANHLDR 01-05 12:22 → ANHOB2 01-05 12:22
PROVIDERS: Advanced Practice Midwife; Admitting Provider Obstetrics & Gynecology; PCP Nurse Practitioner Family; Visit Provider Obstetrics & Gynecology
DX: O99.824 Streptococcus B carrier state complicating childbirth (principal); Z37.0 Single live birth; Z3A.36 36 weeks gestation of pregnancy; O36.8330 Maternal care for abnormalities of the fetal heart rate or rhythm, third trimester, not applicable or unspecified; O70.0 First degree perineal laceration during delivery; O69.81X0 Labor and delivery complicated by cord around neck, without compression, not applicable or unspecified
CPT/HCPCS: 36415; 84112; 85014; 85018; 85025; 85461; 86592; 86850; 86880; 86900; 86901; 86902; 88307; 90384; 90715; A9270; G0378; G0379; J0690; J2405; J2590; J2790; J2795; J7120

== ENCOUNTER 2022-03-17 13:25 | Emergency (ER) | payer OTHER, SELFPAY ==
--- NOTE | ~2022-03-17 | CT_ITS ---
EXAMINATION: CT abdomen pelvis w con DATE: 03/17/2022 14:43 INDICATION: Abdominal pain TECHNIQUE: Computed tomography (CT) of the abdomen and pelvis was performed with 100 mL Omnipaque-300 intravenous contrast. Automated exposure control and iterative reconstruction technique were employe d. The dose-length product was 469.11 mGy-cm. COMPARISON: 08/11/2018. FINDINGS: Lower thorax: Unremarkable Liver: Normal. Biliary/Gallbladder: Gallbladder is normal. No bile duct dilation. Pancreas: No mass or duct dilation. Spleen: Normal. Adrenals:No mass. Kidneys: No mass, stone, or hydronephrosis. GI tract: No small or large bowel dilation. Short segment small bowel wall edema in the right mid abd omen with surrounding inflammatory change. Normal appendix. Mesentery/Peritoneum: No ascites, mass, or free air. Small volume ascites, likely reactive, best seen in the inferior right paracolic gutter Retroperitoneum: No mass. Pelvis: Pelvic organs are within normal limits. Small volume free pelvic fluid. Soft Tissues: Soft tissues and body wall unremarkable. Bones: No acute osseous finding. Left iliac wing biopsy or marrow donor sites. IMPRESSION: Small bowel enteritis, likely on an infectious or inflammatory basis. Ischemia should be considered i f there is a history of vasculitis. Reviewed, dictated and finalized at location K. IMPRESSION: Small bowel enteritis, likely on an infectious or inflammatory basis. Ischemia should be considered if there is a history of vasculitis.
[2022-03-17 13:27] VITALS: BP 148/85; PULSE 71; RESP 18; TEMP 36.5; O2SAT 99
[2022-03-17 13:41] VITALS: PULSE 59; RESP 16; O2SAT 100
--- NOTE | 2022-03-17 13:41 | ED.ABDPAIN ---
HPI - Abdominal Pain General Chief Complaint: Abdominal Pain Stated Complaint: abd pain Time Seen by Provider: 03/17/22 13:41 Source: patient and family Mode of arrival: ambulatory Limitations: no limitations History of Present Illness HPI narrative: Patient is 21 years old white female presented to the ED with diffuse mid abdominal pain started 2 months ago immediately after having vaginal delivery. Patient is 1, para 1 and 0. Patient also reports some diffuse headache started at the same time. Patient was seen by her BARREL CHARRER HELPER with negative work-up including abdominal ultrasound. Patient reports that her pain gets better with heating pad, today did not work. Patient denies any fever, chills, nausea, vomiting, diarrhea, constipation, urinary symptoms, vaginal bleeding or discharge. History of anxiety and depression. Patient does not smoke, drinks occasionally and does not use drugs. No history of abdominal surgery. Related Data Home Medications Medication Instructions Recorded Confirmed escitalopram oxalate 10 mg tablet 10 mg PO DAILY 06/02/21 12/31/21 Vitamin 1 tablet PO DAILY 10/05/21 12/31/21 Allergies Allergy/AdvReac Type Severity Reaction Status Date / Time Penicillins Allergy Mild Hives Verified 01/02/22 03:21 Review of Systems Review of Systems: All systems reviewed & are unremarkable except as noted in HPI and below PMFSH Past Medical History Medical History Patient denies significant medical history Family History Family History Grandparent Diabetes mellitus Hypertension Cerebrovascular accident Father Hypertension Sibling Hypothyroidism Social History Social History Smoking status: Never smoker Second hand tobacco smoke exposure: No Alcohol intake: never Substance use: never Spiritual care concerns: No Exam Narrative: General appearance: Well-developed, well-nourished Skin: Normal color Head: Normocephalic, nontraumatic Eyes: Clear conjunctiva ENT: Oropharynx normal, ears normal, nose normal Neck: Supple, nontender Chest and respiratory: Airway patent, no respiratory distress, no accessory muscle use Heart: Regular rate/rhythm Abdomen: Soft, diffuse tenderness lower abdomen bilaterally mainly left lower quadrant, no guarding or rebound no organomegaly, quiet bowel sounds Vascular: Normal peripheral pulses, normal capillary refill. Musculoskeletal: Normal range of motion, nontender back Neurologic: Alert and oriented ?3, FISCAL CLERK is normal as tested, no gross motor deficit Course Course Emergency Course: Patient came to the ED with diffuse abdominal pain for the last 2 months and diffuse headache which started immediately after having a baby. Patient have history of anxiety and depression. Patient symptoms high likely secondary to anxiety, depression, blues. Work-up today did not show any significant abnormality except CT scan showed possible enteritis infectious versus inflammatory. Sed rate and CRP are normal, the possibility of vasculitis is less likely. I plan to discharge patient on Levaquin and Flagyl to follow-up with warehouse engineer. Vital Signs Vital signs: Vital Signs Temperature 36.5 C 03/17/22 13:27 Pulse Rate 71 03/17/22 13:27 Respiratory Rate 18 03/17/22 13:27 Blood Pressure 148/85 H 03/17/22 13:27 Pulse Oximetry 99 03/17/22 13:27 Oxygen Delivery Room Air 03/17/22 13:27 Temperature 36.5 C 03/17/22 13:27 Pulse Rate 59 L 03/17/22 13:41 Respiratory Rate 16 02/27
[2022-03-17 14:00] VITALS: BP 140/77; PULSE 63; RESP 16; O2SAT 99
[2022-03-17] MEDS: SODIUM CHLORIDE 0.9% IV 1,000 ML 999 ML IV CONT (14:02)
[2022-03-17 14:16] LABS: Basophils Absolute Auto 0.1 K/mm3 (0.0-0.1); Basophils Percent Auto 0.8 % (0.2-1.2); Eosinophils Absolute Auto 0.2 K/mm3 (0-0.3); Eosinophils Percent Auto 3.3 % (0-4.4); Hematocrit 41.4 % (37.0-47.0); Hemoglobin 13.5 g/dL (12.0-15.0); Immature Granulocyte Absolute 0.01 K/mm3 (0.00-0.031); Immature Granulocyte Percent A 0.2 % (0-0.5); Lymphocytes Absolute Auto 2.25 K/mm3 (0.9-3.2); Lymphocytes Percent Auto 36.8 % (18.3-44.2); Mean Corpuscular HGB Conc 32.6 g/dl (32-36); Mean Corpuscular Hemoglobin 28.3 pg (26-34); Mean Corpuscular Volume 86.8 fl (80-100); Monocytes Absolute Auto 0.6 K/mm3 (0.1-0.6); Monocytes Percent Auto 9.3 % (2.6-8.5); Neutrophils Percent Auto 49.6 % (45.5-73.1); Platelet Count Result 230 k/mm3 (150-375); Red Blood Count 4.77 M/mm3 (4.2-5.4); Red Cell Distribution Width 13.2 % (11.5-14.5); White Blood Count 6.1 K/mm3 (4.5-10.0)
[2022-03-17 14:22] LABS: Alanine Aminotransferase 29 U/L (6-35); Albumin Level 4.6 g/dL (3.5-5.1); Alkaline Phosphatase 77 U/L (38-126); Anion Gap 8 mmol/L (8-16); Aspartate Amino Transferase 29 U/L (14-36); Bilirubin,Total 1.1 mg/dL (0.2-1.3); Blood Urea Nitrogen 16 mg/dL (7-17); Calcium 9.3 mg/dL (8.4-10.2); Carbon Dioxide 26 mmol/L (22-30); Chloride 105 mmol/L (98-107); Estimated CRCL calculation 134 ml/min; Estimated Glomerular Filt Rate > 60; Glucose 90 mg/dL (65-110); Lipase 72 U/L (23-300); Potassium 4.1 mmol/L (3.4-5.0); Sodium 139 mmol/L (137-145)
[2022-03-17 15:00] VITALS: BP 134/85; PULSE 61; RESP 16; O2SAT 100
[2022-03-17] MEDS: ONDANSETRON INJ 4 MG/2 ML VIAL IV PUSH (15:10)
[2022-03-17] MEDS: MORPHINE SULFATE (*CRX) 4 MG/ML INJ 2 MG IV PUSH (15:20)
[2022-03-17 15:21] LABS: Appearance Urine Clear (Clear); Bilirubin Urine Negative (Negative); Blood Urine Negative (Negative); Color Urine Yellow (Yellow); Glucose Urine UA Negative (Negative); Ketones Urine Negative (Negative); Leukocyte Esterase Ur Negative LEU/UL (Negative); Nitrate Urine Negative (Negative); Protein Urine Negative (Negative); Urobilinogen Urine 0.2 mg/dL (<2.0); pH Urine 7.5 (5.0-9.0)
[2022-03-17 15:39] LABS: Add Urine Microscopic? NO
[2022-03-17 16:18] LABS: CRP 0.6 mg/dL (<1.0)
[2022-03-17 16:35] VITALS: BP 131/71; PULSE 70; RESP 16; O2SAT 98
[2022-03-17 16:41] LABS: Erythrocyte Sedimentation Rate 1 mm/hr (0-20)
== END 2022-03-17 16:35 | disposition home or self-care (01) ==
PROVIDERS: Emergency Provider Emergency Medicine; PCP Nurse Practitioner Family
DX: K52.9 Noninfective gastroenteritis and colitis, unspecified (principal)
CPT/HCPCS: 36415; 74177; 80053; 81003; 81025; 83690; 85025; 85652; 86140; 96361; 96374; 96375; 99284; J2270; J2405; J7030; Q9967

== ENCOUNTER 2022-04-27 07:25 | Outpatient (CLI) | payer OTHER, SELFPAY ==
--- NOTE | ~2022-04-27 | XR_ITS ---
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 Conventional supi ne abdomen radiographs and fluoroscopic spot radiographs of the esophagus, stomach, and proximal smal l bowel were obtained. Additional overhead radiographs were obtained during the transit through the s mall bowel. Spot fluoroscopic images of the small bowel were obtained upon contrast reaching the cec um. Fluoroscopy exposure time was 2.4 minutes. A total of 524 fluoroscopic images and 4 overhead radi ographs were obtained. COMPARISON: CT dated 03/17/2022 FINDINGS: The esophagus is normal without mass or stricture. Esophageal motility is normal. There is no hiatal hernia. There was no gastroesophageal reflux with provocative maneuvers. The stomach and proximal sma ll bowel are normal. Transit time from the stomach to proximal colon was approximately 1 hour. There is suggestion of some mild cobblestoning at the terminal ileum however but without significant mucosal fold thickening to suggest residual mural edema as was seen on the prior CT. There is normal caliber and mucosal fold pa ttern throughout the remainder of the small bowel. No tethering, strictures or abnormal mass effect o bserved upon the small bowel with real-time fluoroscopy. IMPRESSION: 1. Normal upper GI study. 2. Suggestion of residual mild cobblestoning at the terminal ileum without significant mucosal fold t hickening consistent with improvement in prior mural edema. This could be related to either Crohn's d isease, lymphoid hyperplasia or other nonspecific terminal ileitis including infectious etiologies. R ecommend correlation with findings from the reportedly planned colonoscopy. Reviewed, dictated and finalized at location A. IMPRESSION: 1. Normal upper GI study. 2. Suggestion of residual mild cobblestoning at the terminal ileum without sign ificant mucosal fold thickening consistent with improvement in prior mural amberly a. This could be related to either Crohn's disease, lymphoid hyperplasia or oth er nonspecific terminal ileitis including infectious etiologies. Recommend so elation with findings from the reportedly planned colonoscopy.
== END 2022-04-27 07:26 | disposition home or self-care (01) ==
LOC: ANHIMG 07:27
PROVIDERS: PCP Nurse Practitioner Family; Visit Provider Nurse Practitioner
DX: R93.3 Abnormal findings on diagnostic imaging of other parts of digestive tract (principal); R10.9 Unspecified abdominal pain; K50.00 Crohn's disease of small intestine without complications
CPT/HCPCS: 74246; 74248

== ENCOUNTER 2022-05-13 00:37 | Day surgery (SDC) | payer OTHER, SELFPAY ==
[2022-05-05 12:20] VITALS: BMI 25.0
[2022-05-13 08:50] VITALS: BP 137/90; PULSE 91; RESP 18; TEMP 36.2; O2SAT 99; BMI 24.8
[2022-05-13] MEDS: LACTATED RINGERS 1,000 ML 150 ML IV CONT (09:09)
--- NOTE | 2022-05-13 09:17 | WPDANESEPPF ---
Anes - Initial Pre Proc Eval Procedure: Operation Date: 05/13/22 10:15 Proposed Procedures p Colonoscopy - Pillo Parikh MD Date/Time: 05/13/22 09:17 Surgeon: Pillo Parikh MD Pre Op Diagnosis: enteritis Patient Data Age: 21 Gender: F Height: 1.78 m Weight: 78.5 kg Last Vital Signs Temp 36.2 C L 05/13/22 08:50 Pulse 91 05/13/22 08:50 Resp 18 05/13/22 08:50 BP 137/90 05/13/22 08:50 Pulse Ox 99 05/13/22 08:50 O2 Del Method Room Air 05/13/22 08:50 Allergies Allergy/AdvReac Type Severity Reaction Status Date / Time Penicillins Allergy Mild Hives Verified 05/13/22 08:51 Home Medications Medication Instructions Recorded Confirmed Type escitalopram oxalate 10 mg tablet 20 mg PO DAILY 04/15/22 05/13/22 History Patient hx anesthesia problems: none Family hx anesthesia problems: none Results Review: All pre-operative results and documents have been reviewed as part of the pre-operative evaluation. [facility] Past Medical History Medical History (Updated 05/13/22 @ 09:18 by Don Ramirez MD) Anxiety Patient denies significant medical history Regional enteritis of small bowel Family History Family History Grandparent Diabetes mellitus Hypertension Cerebrovascular accident Father Hypertension Sibling Hypothyroidism Social History Social History Smoking status: Never smoker Second hand tobacco smoke exposure: No Alcohol intake: current Alcohol use details: 2 per month Substance use: never Living arrangements: with family Spiritual care concerns: No Anes - Eval Final PreProcedure Day of Procedure 05/13/22 09:17 Patient weight: normal Heart: regular rate and rhythm Lungs: clear to auscultation Airway: Mallampati scale class II Neurological: alert and oriented Last oral intake: >/= 8 hours ASA classification: II Emergent: no Anesthetic plan: proceed Anesthesia type and monitoring: general GIVS and standard monitoring Results Review: All pre-operative results and documents have been reviewed as part of the pre-operative evaluation. Informed Consent: The patient's anesthetic plan and its attendant risks and benefits were discussed with the patient/family/POA. Questions were solicited and answers provided to the satisfaction of the patient/family/POA.
--- NOTE | 2022-05-13 09:49 | WPDHPUPDATE1 ---
History and Physical Update Update Date/Time: 05/13/22 09:49 History and Physical has been reviewed, including an updated exam of the patient. There are NO changes in the patient's condition. Risks, benefits, and alternatives have been discussed and questions answered. Patient agrees to proceed with procedure.
[2022-05-13 10:06] VITALS: BP 96/50; PULSE 64; RESP 18; O2SAT 100
[2022-05-13 10:16] VITALS: BP 98/65; PULSE 53; RESP 18; O2SAT 100
[2022-05-13 10:26] VITALS: BP 98/58; PULSE 50; RESP 18; O2SAT 100
== END 2022-05-13 10:37 | disposition home or self-care (01) ==
PROVIDERS: PCP Nurse Practitioner Family; Visit Provider Internal Medicine Gastroenterology
PROC: 0DJD8ZZ Inspection of Lower Intestinal Tract, Via Natural or Artificial Opening Endoscopic (ICD-10-PCS; CPT 45378; principal; 2022-05-13 10:15)
DX: R10.9 Unspecified abdominal pain (principal); F41.9 Anxiety disorder, unspecified; R11.0 Nausea; R80.0 Isolated proteinuria
CPT/HCPCS: 45378; J2704; J7120

== ENCOUNTER 2022-07-25 14:45 | Emergency (ER) | payer OTHER, SELFPAY ==
--- NOTE | 2022-07-25 14:50 | ED.URI ---
HPI - URI/Sore Throat General Chief Complaint: Upper Respiratory Infection Stated Complaint: chest pressure, cough Time Seen by Provider: 07/25/22 14:50 Source: patient Mode of arrival: ambulatory Limitations: no limitations History of Present Illness HPI Narrative: Mrs. Greer is a 21-year-old female patient presenting to clinic today with complaints of chest pressure and cough. She reports symptoms began yesterday. She does have a history of asthma. She also states that she has been exposed to her sister who is tested positive for influenza A MD elicited complaint: sore throat and nasal congestion Related Data Home Medications Medication Instructions Recorded Confirmed escitalopram oxalate 10 mg tablet 20 mg PO DAILY 04/15/22 07/25/22 Allergies Allergy/AdvReac Type Severity Reaction Status Date / Time Penicillins Allergy Mild Hives Verified 07/25/22 15:02 oseltamivir [From Tamiflu] Allergy Hallucinati Verified 07/25/22 15:30 ng Review of Systems Review of Systems: Pertinent positives per HPI. Patient denies any fever, chills, rash, headache, visual changes, dizziness, shortness of breath, chest pain, palpitations, nausea, vomiting, diarrhea, constipation, abdominal pain, or any urinary issues. [facility] Past Medical History Medical History Anxiety Patient denies significant medical history Regional enteritis of small bowel Family History Family History Grandparent Diabetes mellitus Hypertension Cerebrovascular accident Father Hypertension Sibling Hypothyroidism Social History Social History Smoking status: Never smoker Second hand tobacco smoke exposure: No Alcohol intake: current Alcohol use details: 2 per month Substance use: never Spiritual care concerns: No Comments At the time of my signature, I reviewed and agree with the nursing past medical, surgical, social, and family history. There is no relevant family history pertinent to the patient complaint. Exam Narrative: General: Well-developed, well nourished, in no apparent distress Head: Normocephalic, atraumatic Eyes: Pupils equally round and reactive to light bilaterally, EOM intact, sclera and conjunctive clear, no discharge, lids normal Ears: TMs intact and clear, ear canals clear, no drainage, grossly hearing normal. Nose: Nares patent, no discharge, no inflammation, no sinus tenderness. Mouth: Oral pharynx without lesions or masses, good dentition, MMM. Neck: Supple, trachea midline, no enlargement of anterior or posterior cervical nodes, no thyroid masses or goiter palpable. Cardio: Regular rate and rhythm, s1 and s2 normal, no murmur appreciated. Resp: Clear to auscultation bilaterally, no rhonchi, rales, wheezing or rubs Course Course Emergency Course: Portions of this record may have been created with voice recognition software. Level of Care: Express Care Visit Vital Signs Vital signs: Vital Signs Temperature 36.2 C L 07/25/22 14:54 Pulse Rate 97 07/25/22 14:54 Respiratory Rate 16 07/25/22 14:54 Blood Pressure 129/72 07/25/22 14:54 Pulse Oximetry 99 07/25/22 14:54 Temperature 36.2 C L 07/25/22 14:54 Pulse Rate 97 07/25/22 14:54 Respiratory Rate 16 07/25/22 14:54 Blood Pressure 129/72 07/25/22 14:54 Pulse Oximetry 99 07/25/22 14:54 Vital signs reviewed MDM - URI/Sore Throat MDM Narrative Medical decision making narrative: At the time of visit patient is resting comfortably on the exam table. Influenza testing was completed and was negative today. Patient is allergic to Tamiflu so that was removed from her prescription last but I will give her an albuterol inhaler and some prednisone to help with the chest congestion. Supportive measures were discussed with the patient she
[2022-07-25 14:54] VITALS: BP 129/72; PULSE 97; RESP 16; TEMP 36.2; O2SAT 99
--- NOTE | 2022-07-25 15:30 | PC.NURSE ---
1520-- attempt to discharge pt, and then she realized she is allergic to tamiflu, when she was 15 she had rash from it and hallucinations. medication added to her allergy list here in our system, and encouraged pt to add it to all of her allergy lists.
== END 2022-07-25 15:20 | disposition home or self-care (01) ==
PROVIDERS: Emergency Provider Nurse Practitioner Family; PCP Nurse Practitioner Family
DX: J06.9 Acute upper respiratory infection, unspecified (principal); B34.9 Viral infection, unspecified; Z20.828 Contact with and (suspected) exposure to other viral communicable diseases
CPT/HCPCS: 87804; 99213; G0463

== ENCOUNTER 2022-08-02 08:45 | Emergency (ER) | payer OTHER, SELFPAY ==
--- NOTE | ~2022-08-02 | XR_ITS ---
EXAMINATION: XR chest 2V 08/02/2022 09:19 INDICATION: Cough with fever PROCEDURE: PA and lateral views of the chest COMPARISON: No prior studies for comparison. FINDINGS: The lungs are clear. The cardiomediastinal silhouette is within normal limits. There are no pleural effusions. There is no pneumothorax suspected. IMPRESSION: 1: NO ACUTE CARDIOPULMONARY DISEASE. Reviewed, dictated and finalized at location A. NSED THERAPIST
[2022-08-02 08:53] VITALS: BP 121/71; PULSE 88; RESP 16; TEMP 36.8; O2SAT 99
--- NOTE | 2022-08-02 09:06 | ED.GENADULT ---
HPI - General Adult General Chief complaint: Upper Respiratory Infection Stated complaint: cough, sore throat,headache Source: patient Mode of arrival: ambulatory Limitations: no limitations History of Present Illness HPI narrative: Patient presents for evaluation of cough for the last week. She indicates several family members were all sick and tested positive for flu. She was tested for flu last week and was negative. Her symptoms have persisted. She reports her cough to be nonproductive in nature. She states her told her that she was wheezing while asleep. She has an underlying history of asthma and has used albuterol twice since her time of symptom onset. She reports sore throat secondary to coughing. No fever, chills, vomiting, diarrhea, however she has experienced some nausea. She does not smoke. She had COVID in August of this year. She has tried dayquil but her symptoms persist. Related Data Home Medications Medication Instructions Recorded Confirmed escitalopram oxalate 10 mg tablet 20 mg PO DAILY 04/15/22 08/02/22 etonogestrel 68 mg subdermal 1 implant subdermal ONCE 08/02/22 08/02/22 implant (Nexplanon) Allergies Allergy/AdvReac Type Severity Reaction Status Date / Time Penicillins Allergy Mild Hives Verified 08/02/22 08:51 oseltamivir [From Tamiflu] Allergy Hallucinati Verified 08/02/22 08:51 ng Review of Systems Review of Systems: CONSTITUTIONAL: Denies fever, chills, or sweats. EYES: Denies visual changes, redness, or discharge. ENT: reports sore throat.Denies rhinorrhea, congestion,, or otalgia. CARDIOVASCULAR: Denies chest pain, palpitations, or edema. RESPIRATORY: reports cough and wheezing GASTROINTESTINAL: Reports nausea.Denies abdominal pain, vomiting, or diarrhea. GENITOURINARY: Denies dysuria or hematuria. SKIN: Denies rash or itching. MUSCULOSKELETAL: Denies back pain, joint pain, or myalgia. NEUROLOGIC: Denies headache, numbness, dizziness, or weakness. PSYCHIATRIC: Denies anxiety or depression. [facility] Past Medical History Medical History (Updated 08/02/22 @ 09:42 by Shane Wilson, JEANA, SALO) Anxiety Patient denies significant medical history Regional enteritis of small bowel Surgical History Surgical History No pertinent past surgical history Family History Family History Grandparent Diabetes mellitus Hypertension Cerebrovascular accident Father Hypertension Sibling Hypothyroidism Social History Social History Smoking status: Never smoker Second hand tobacco smoke exposure: No Alcohol intake: current Alcohol use details: 2 per month Substance use: never Living arrangements: with family Gender identity (if verbalized by the patient): Female Sexual Orientation (if Verbalized by the Patient): Straight or Heterosexual Spiritual care concerns: No Exam Narrative: GENERAL: Well-appearing, well-nourished, and in no acute distress. HEAD: Normocephalic, atraumatic. EYES: PERRLA and EOMI. ENT: Nares clear, no rhinorrhea or epistaxis. Mucous membranes moist. Oropharynx without tonsillar hypertrophy exudate or other lesions. Bilateral TMs pearly tyson nonbulging NECK: Supple. No adenopathy or masses. No carotid bruits or JVD CHEST: Clear to auscultation. No respiratory distress. No wheezes rales or rhonchi HEART: Regular rate and rhythm. No murmur heard. Normal peripheral pulses. ABDOMEN: Soft, nontender, nondistended, normal active bowel sounds. EXTREMITIES: Normal range of motion. No edema. SKIN: Warm, dry, no rash. NEURO: No focal deficits. Alert and oriented x3. PSYCH: Normal mood and affect. Course Course Emergency Course: This is a 21-year-old female presenting for evaluation of sick symptoms. Influenza was negative. Chest x-ray negativ
== END 2022-08-02 09:46 | disposition home or self-care (01) ==
PROVIDERS: Emergency Provider Nurse Practitioner; PCP Nurse Practitioner Family
DX: J06.9 Acute upper respiratory infection, unspecified (principal); F41.9 Anxiety disorder, unspecified
CPT/HCPCS: 71046; 87804; 99213; G0463

== ENCOUNTER 2022-08-16 18:46 | Emergency (ER) | payer OTHER, SELFPAY ==
--- NOTE | 2022-08-16 18:57 | ED.URI ---
HPI - URI/Sore Throat General Chief Complaint: Upper Respiratory Infection Stated Complaint: CONGESITON/SORE THROAT/EARACHE/HEADACHE Time Seen by Provider: 08/16/22 19:20 Source: patient Mode of arrival: ambulatory Limitations: no limitations History of Present Illness HPI Narrative: Lance is a 21-year-old female patient presenting to the clinic today with complaints of cough, congestion, ear pain, and headache times 3-4 weeks. She reports her illness initially started out with exposure to influenza. States she is having some green nasal drainage with sinus pressure and congestion. He denies any known fever or chills. States she was given a round of prednisone and that really did not help her symptoms MD elicited complaint: sore throat and nasal congestion Related Data Home Medications Medication Instructions Recorded Confirmed escitalopram oxalate 10 mg tablet 20 mg PO DAILY 04/15/22 08/16/22 etonogestrel 68 mg subdermal 1 implant subdermal ONCE 08/02/22 08/16/22 implant (Nexplanon) Allergies Allergy/AdvReac Type Severity Reaction Status Date / Time Penicillins Allergy Mild Hives Verified 08/16/22 19:20 oseltamivir [From Tamiflu] Allergy Hallucinati Verified 08/16/22 19:20 ng Review of Systems Review of Systems: Pertinent positives per HPI. Patient denies any fever, chills, rash,visual changes, dizziness, shortness of breath, chest pain, palpitations, nausea, vomiting, diarrhea, constipation, abdominal pain, or any urinary issues. PMFSH Past Medical History Medical History Anxiety Patient denies significant medical history Regional enteritis of small bowel Surgical History Surgical History No pertinent past surgical history Family History Family History Grandparent Diabetes mellitus Hypertension Cerebrovascular accident Father Hypertension Sibling Hypothyroidism Social History Social History Smoking status: Never smoker Second hand tobacco smoke exposure: No Alcohol intake: current Alcohol use details: 2 per month Substance use: never Gender identity (if verbalized by the patient): Female Sexual Orientation (if Verbalized by the Patient): Straight or Heterosexual Spiritual care concerns: No Comments At the time of my signature, I reviewed and agree with the nursing past medical, surgical, social, and family history. There is no relevant family history pertinent to the patient complaint. Exam Narrative: General: Well-developed, well nourished, in no apparent distress Head: Normocephalic, atraumatic Eyes: Pupils equally round and reactive to light bilaterally, EOM intact, sclera and conjunctive clear, no discharge, lids normal Ears: TMs intact, dull, with mild bulging, ear canals clear, no drainage, grossly hearing normal. Nose: Nares patent, green nasal discharge, moderate to severe inflammation, frontal and maxillary sinus tenderness. Mouth: Oral pharynx without lesions or masses, good dentition, MMM. Postnasal drip Neck: Supple, trachea midline, mild enlargement of anterior cervical nodes, no thyroid masses or goiter palpable. Cardio: Regular rate and rhythm, s1 and s2 normal, no murmur appreciated. Resp: Clear to auscultation bilaterally, no rhonchi, rales, wheezing or rubs Course Course Emergency Course: Portions of this record may have been created with voice recognition software. Level of Care: Express Care Visit Vital Signs Vital signs: Vital Signs Temperature 37.1 C 08/16/22 19:17 Pulse Rate 86 08/16/22 19:17 Respiratory Rate 16 08/16/22 19:17 Blood Pressure 124/73 08/16/22 19:17 Pulse Oximetry 100 08/16/22 19:17 Temperature 37.1 C 08/16/22 19:17 Pulse Rate 86 08/16/22 19:1
[2022-08-16 19:17] VITALS: BP 124/73; PULSE 86; RESP 16; TEMP 37.1; O2SAT 100
== END 2022-08-16 19:40 | disposition home or self-care (01) ==
PROVIDERS: Emergency Provider Nurse Practitioner Family; PCP Nurse Practitioner Family
DX: J01.90 Acute sinusitis, unspecified (principal); J02.9 Acute pharyngitis, unspecified; F41.9 Anxiety disorder, unspecified
CPT/HCPCS: 99213; G0463

== ENCOUNTER → 2022-09-03 17:04 | Outpatient (CLI) | payer OTHER, SELFPAY ==
--- NOTE | ~2022-09-03 | XR_ITS ---
EXAMINATION: XR chest 2V 09/03/2022 17:30 INDICATION: Cough PROCEDURE: 2 view chest COMPARISON: 08/02/2022 FINDINGS: The lungs are clear. The cardiomediastinal silhouette is within normal limits. There are no pleural effusions. There is no pneumothorax suspected. IMPRESSION: 1: NO ACUTE CARDIOPULMONARY DISEASE. Reviewed, dictated and finalized at location A. PROGRAMMER
== END ==
PROVIDERS: PCP Nurse Practitioner Family; Visit Provider Nurse Practitioner Family
DX: R05.3 Chronic cough (principal)
CPT/HCPCS: 71046

== ENCOUNTER 2022-10-20 13:53 | Emergency (ER) | payer OTHER, SELFPAY ==
--- NOTE | ~2022-10-20 | XR_ITS ---
EXAM: XR abdomen/kub 1V DATE: 10/20/2022 14:37 HISTORY: UTI. Low back pain. . COMPARISON: None available. FINDINGS: Clear lung bases. Normal bowel gas pattern. No organomegaly. Subtle calcification projecti ng over the left kidney. Phleboliths. IUD. Question of partial lumbarization of S1. Lumbar scoliosis. IMPRESSION: Possible left nephrolithiasis. Reviewed, dictated and finalized at location K. [facility]
[2022-10-20 14:00] VITALS: BP 126/81; PULSE 93; RESP 16; TEMP 36.3; O2SAT 98
--- NOTE | 2022-10-20 14:05 | ED.BACK ---
HPI - Back Pain/Injury General Chief Complaint: Urogenital-Female Stated Complaint: BACK PAIN RADIATING DOWN LEGS S/P UTI Time Seen by Provider: 10/20/22 14:18 Source: patient and RN notes reviewed Mode of arrival: ambulatory Limitations: no limitations History of Present Illness HPI Narrative: 22 old female presents concern for low back pain that radiates down both legs, low-grade temperature, general malaise reports she was seen by her route manager yesterday for a check of her recently placed IUD, a urinalysis showed a UTI and she was started on ciprofloxacin. She reports she took a dose last night and a dose this morning. She reports prior to being diagnosed with the UTI she did not have any noticeable symptoms other than possible frequency. Reports when she got home from the doctor she began having the symptoms of back pain, malaise, fever. She reports trouble sleeping due to pain. Reports taking Tylenol without relief. She reports pain is not positional. She reports it is constant and dull in nature. MD elicited complaint: back pain Related Data Home Medications Medication Instructions Recorded Confirmed ciprofloxacin HCl 500 mg tablet 500 mg PO BID 10/20/22 10/20/22 Allergies Allergy/AdvReac Type Severity Reaction Status Date / Time Penicillins Allergy Mild Hives Verified 08/16/22 19:20 oseltamivir [From Tamiflu] Allergy Hallucinati Verified 08/16/22 19:20 ng Review of Systems Review of Systems: CONSTITUTIONAL: Reports malaise, low-grade fever. CARDIOVASCULAR: Denies chest pain, palpitations, or edema. RESPIRATORY: Denies cough or dyspnea. GASTROINTESTINAL: Denies abdominal pain, nausea, vomiting, diarrhea, loss of bowel function GENITOURINARY: Denies dysuria, hematuria, frequency, loss of bladder function. SKIN: Denies rash or itching. MUSCULOSKELETAL: Reports bilateral low back pain NEUROLOGIC: Denies numbness, weakness, or headache. All systems reviewed & are unremarkable except as noted in HPI and below PMFSH Past Medical History Medical History Anxiety Patient denies significant medical history Regional enteritis of small bowel Surgical History Surgical History No pertinent past surgical history Family History Family History Grandparent Diabetes mellitus Hypertension Cerebrovascular accident Father Hypertension Sibling Hypothyroidism Social History Social History Smoking status: Never smoker Second hand tobacco smoke exposure: No Alcohol intake: current Alcohol use details: 2 per month Substance use: never Living arrangements: with family Gender identity (if verbalized by the patient): Female Sexual Orientation (if Verbalized by the Patient): Straight or Heterosexual Spiritual care concerns: No Comments At time of signature, agree with nursing past medical, surgical, social and family history. There is no relevant family history pertinent to the presenting complaint Exam Narrative: GENERAL: Well-appearing, well-nourished, and in no acute distress. HEAD: Normocephalic, atraumatic. EYES: PERRLA and EOMI. NECK: Supple. No lymphadenopathy. CHEST: Clear to auscultation. No respiratory distress. HEART: Regular rate and rhythm. Distal pulses palpable and equal, cap refill <3 seconds ABDOMEN: Soft, suprapubic tenderness, otherwise nontender, nondistended, normal active bowel sounds, no palpable or pulsatile masses. Mild left cVA tenderness MUSCULOSKELETAL: Normal range of motion and strength in all extremities; 5/5 strength with hip flexion and extension, dorsiflexion and extension, knee flexion and extension, plantar flexion and extension. Normal sensation in dermatomal distributions with sensitivity to light touch and pain.
== END 2022-10-20 14:58 | disposition home or self-care (01) ==
PROVIDERS: Emergency Provider Nurse Practitioner; PCP Nurse Practitioner Family
DX: R10.9 Unspecified abdominal pain (principal)
CPT/HCPCS: 74018; 81003; 87086; 99213; G0463

== ENCOUNTER 2023-01-30 11:43 | Emergency (ER) | payer OTHER, SELFPAY ==
[2023-01-30 11:53] VITALS: BP 122/71; PULSE 75; RESP 16; TEMP 36.7; O2SAT 100
--- NOTE | 2023-01-30 12:27 | ED.GENADULT ---
HPI - General Adult General Chief complaint: Extremity Injury, Lower Stated complaint: L ANKLE SWELLING Time Seen by Provider: 01/30/23 12:18 Source: patient and RN notes reviewed Mode of arrival: ambulatory Limitations: no limitations History of Present Illness HPI narrative: Patient presents today complaining of all swelling to the left inner ankle x3 days. Denies any injury or trauma. Ankle swelling started while she was in [place] and has persisted. Denies pain. She has tried no [id number] treatment prior to arrival. She states that she has several mosquito bites to the ankle and foot. Related Data Home Medications Medication Instructions Recorded Confirmed escitalopram oxalate 10 mg tablet 10 mg PO DAILY 01/30/23 01/30/23 Allergies Allergy/AdvReac Type Severity Reaction Status Date / Time Penicillins Allergy Mild Hives Verified 01/30/23 12:14 oseltamivir [From Tamiflu] Allergy Hallucinati Verified 01/30/23 12:14 ng Review of Systems Review of Systems: CONSTITUTIONAL: Denies body aches, fever, chills, or sweats. EYES: Denies visual changes, redness, or discharge. ENT: Denies rhinorrhea, congestion, sore throat, or otalgia. CARDIOVASCULAR: Denies chest pain, palpitations, or edema. RESPIRATORY: Denies cough or dyspnea. GASTROINTESTINAL: Denies abdominal pain, nausea, vomiting, or diarrhea. GENITOURINARY: Denies dysuria or hematuria. SKIN: Denies rash, itching, or wounds. MUSCULOSKELETAL: + swelling of ankle NEUROLOGIC: Denies headache, numbness, tingling, or weakness. PSYCH: Denies depression or anxiety. [facility] Past Medical History Medical History Anxiety Patient denies significant medical history Regional enteritis of small bowel Surgical History Surgical History No pertinent past surgical history Family History Family History Grandparent Diabetes mellitus Hypertension Cerebrovascular accident Father Hypertension Sibling Hypothyroidism Social History Social History Smoking status: Never smoker Second hand tobacco smoke exposure: No Alcohol intake: current Alcohol use details: 2 per month Substance use: never Living arrangements: with family Gender identity (if verbalized by the patient): Female Sexual Orientation (if Verbalized by the Patient): Straight or Heterosexual Spiritual care concerns: No Comments At time of signature, I have reviewed and agree with nursing past medical, surgical, social and family history unless otherwise noted. Please see nursing chart for further information. There is no relevant family history pertinent to the presenting complaint Exam Narrative: GENERAL: Well-appearing, well-nourished, and in no acute distress. HEAD: Normocephalic, atraumatic. EYES: EOMI. No redness or drainage. Conjunctivae normal. ENT: Mucous membranes pink and moist. NECK: Normal AROM. CHEST: No respiratory distress. EXTREMITIES: 1 to 2+ pitting edema to the left medial ankle. Several scabbed insect bites to the dorsum of the left foot and medial and posterior ankle with surrounding mild erythema and edema. No induration or drainage noted. No swelling, edema, or erythema to the lateral ankle. Distal sensation intact. Capillary refill normal. Pedal pulse normal. No edema to the foot. Patient has faint erythema to the left snell as well without induration. SKIN: Warm, dry, no rash. Capillary refill normal. Normal skin turgor. NEURO: No focal deficits. Alert and oriented x3. Gait steady. PSYCH: Normal affect. No signs of depression or anxiety. Course Course Level of Care: Express Care Visit Vital Signs Vital signs: Vital Signs Temperature 98.1 F 01/30/23 11:53 Pulse Rate 75 06/0
== END 2023-01-30 12:38 | disposition home or self-care (01) ==
PROVIDERS: Emergency Provider Nurse Practitioner; PCP Nurse Practitioner Family
DX: S90.562A Insect bite (nonvenomous), left ankle, initial encounter (principal); S90.862A Insect bite (nonvenomous), left foot, initial encounter; W57.XXXA Bitten or stung by nonvenomous insect and other nonvenomous arthropods, initial encounter; F41.9 Anxiety disorder, unspecified
CPT/HCPCS: 99213; G0463

== ENCOUNTER 2023-04-17 14:37 | Emergency (ER) | payer OTHER, SELFPAY ==
[2023-04-17 14:47] VITALS: BP 129/83; PULSE 93; RESP 20; TEMP 36.8; O2SAT 99
--- NOTE | 2023-04-17 15:01 | ED.NAVMDI ---
HPI - Nausea/Vomiting/Diarrhea General Chief complaint: Nausea/Vomiting/Diarrhea Stated complaint: Lower back pain;diarrhea;nausea Time Seen by Provider: 04/17/23 14:50 Source: patient and RN notes reviewed Mode of arrival: ambulatory Limitations: no limitations History of Present Illness HPI Narrative: Patient presents today complaining right low back pain since yesterday with diarrhea and nausea. Today she vomited 1 time, which did help improve nausea. Patient states she cannot quantify how many time she has had diarrhea. Denies blood or mucus in the stool. Denies fever or abdominal pain, but does report abdominal cramping. She has been taking ibuprofen with no relief. She denies any urinary symptoms as well. Related Data Home Medications Medication Instructions Recorded Confirmed gatifloxacin 0.5 % eye drops 1 drp ophthalmic (eye) DIRECTED 04/17/23 04/17/23 lifitegrast 5 % eye drops in a 1 drp ophthalmic (eye) DIRECTED 04/17/23 04/17/23 dropperette (Xiidra) loteprednol etabonate 0.38 % eye 1 drp ophthalmic (eye) DIRECTED 04/17/23 04/17/23 gel drops (Lotemax SM) Allergies Allergy/AdvReac Type Severity Reaction Status Date / Time Penicillins Allergy Mild Hives Verified 04/17/23 14:52 oseltamivir [From Tamiflu] Allergy Hallucinati Verified 04/17/23 14:52 ng Review of Systems Review of Systems: CONSTITUTIONAL: Denies body aches, fever, chills, or sweats. EYES: Denies visual changes, redness, or discharge. ENT: Denies rhinorrhea, congestion, sore throat, or otalgia. CARDIOVASCULAR: Denies chest pain, palpitations, or edema. RESPIRATORY: Denies cough or dyspnea. GASTROINTESTINAL: Denies abdominal pain. + nausea, vomiting, diarrhea GENITOURINARY: Denies dysuria or hematuria. SKIN: Denies rash, itching, or wounds. MUSCULOSKELETAL: Denies joint pain, or myalgia.+ right low back pain NEUROLOGIC: Denies headache, numbness, tingling, or weakness. PSYCH: Denies depression or anxiety. PMFSH Past Medical History Medical History Anxiety Patient denies significant medical history Regional enteritis of small bowel Surgical History Surgical History No pertinent past surgical history Family History Family History Grandparent Diabetes mellitus Hypertension Cerebrovascular accident Father Hypertension Sibling Hypothyroidism Social History Social History Smoking status: Never smoker Second hand tobacco smoke exposure: No Alcohol intake: current Alcohol use details: 2 per month Substance use: never Living arrangements: with family Gender identity (if verbalized by the patient): Female Sexual Orientation (if Verbalized by the Patient): Straight or Heterosexual Spiritual care concerns: No Comments At time of signature, I have reviewed and agree with nursing past medical, surgical, social and family history unless otherwise noted. Please see nursing chart for further information. There is no relevant family history pertinent to the presenting complaint Exam Narrative: GENERAL: Well-appearing, well-nourished, and in no acute distress. HEAD: Normocephalic, atraumatic. EYES: EOMI. No redness or drainage. Conjunctivae normal. ENT: Mucous membranes pink and moist. NECK: Normal AROM. CHEST: No respiratory distress. Clear to auscultation. HEART: Regular rate and rhythm. No murmur appreciated. Normal peripheral pulses. ABDOMEN: Soft, nontender, nondistended, normal active bowel sounds. + right flank tenderness to palpation. MUSCULOSKELETAL: No bony tenderness. EXTREMITIES: Normal range of motion. No edema. SKIN: Warm, dry, no rash. Capillary refill normal. Normal skin turgor. NEURO: No focal deficits. Alert and oriented x3. Gait
== END 2023-04-17 15:28 | disposition home or self-care (01) ==
PROVIDERS: Emergency Provider Nurse Practitioner; PCP Nurse Practitioner Family
DX: R11.2 Nausea with vomiting, unspecified (principal); R19.7 Diarrhea, unspecified
CPT/HCPCS: 81003; 99212; G0463

== ENCOUNTER 2023-11-30 14:18 | Emergency (ER) | payer OTHER, SELFPAY ==
--- NOTE | ~2023-11-30 | XR_ITS ---
XR chest 1V DATE: 11/30/2023 16:31 INDICATION: Cough TECHNIQUE: AP chest COMPARISON: 09/03/2022 2 view chest is not available from PACS. FINDINGS: Normal heart size. No hilar or mediastinal enlargement. No pulmonary infiltrate or consolid ation, pleural effusion or pulmonary vascular congestion or pneumothorax. Minimal thoracic dextroscoliosis. IMPRESSION: No active cardiopulmonary disease Reviewed, dictated and finalized at location [facility].
--- NOTE | ~2023-11-30 | CT_ITS ---
EXAMINATION: CT brain wo con DATE: 11/30/2023 16:26 INDICATION: Headache for 1.5 weeks. Anxiety. TECHNIQUE: Computed tomography (CT) of the head was performed without intravenous contrast. The mA wa s adjusted according to patient size. Iterative reconstruction technique was employed. Exam dose: 68 1.00 mGy-cm total exam DLP. COMPARISON: None FINDINGS: No intracranial mass lesion or hemorrhage or cerebrovascular accident. No midline shift or mass effect. Normal ventricular size. Normal tyson-white matter differentiation. No subdural or epidur al hematoma is detected. No fracture or bone destruction of the cranial vault. Included paranasal sinuses and mastoid air cells are normally developed and aerated. IMPRESSION: Negative Reviewed, dictated and finalized at [facility]. Reviewed, dictated and finalized at location [facility]. IMPRESSION: Negative
--- NOTE | 2023-11-30 14:19 | ECG_ITS ---
Measurements Intervals [place] Rate: 75 P: 33 MA: 114 QRS: 64 QRSD: 89 T: 53 QT: 365 QTc: 409 Interpretive Statements SINUS RHYTHM WITH SINUS ARRHYTHMIA WITH SHORT MA INTERVAL NO PREVIOUS ECG AVAILABLE FOR COMPARISON Electronically Signed On 11-30-2023 14:54:35 CDT by Flor Antoine M.D.
[2023-11-30 14:22] VITALS: BP 136/64; PULSE 85; RESP 16; TEMP 36.7; O2SAT 99
--- NOTE | 2023-11-30 15:09 | ECG_ITS ---
Measurements Intervals [place] Rate: 73 P: 22 OR: 120 QRS: 64 QRSD: 96 T: 49 QT: 392 QTc: 433 Interpretive Statements SINUS RHYTHM COMPARED TO ECG 11/30/2023 14:34:23 NO SIGNIFICANT CHANGES Electronically Signed On 12-02-2023 12:54:24 CDT by Flor Antoine M.D.
[2023-11-30 15:32] VITALS: BP 130/73; PULSE 79; RESP 12; TEMP 36.4; O2SAT 100
--- NOTE | 2023-11-30 15:45 | ED.ANXIETY ---
HPI - Anxiety General Chief Complaint: Anxiety Stated Complaint: chest pain Time Seen by Provider: 11/30/23 15:41 Source: patient Mode of arrival: ambulatory Limitations: no limitations History of Present Illness HPI narrative: 23 years old white female drove herself to the emergency room because of multiple symptoms including chest tightness and lightheadedness and headache for the last 1 and half week. Patient also telling me that she is having panic attack daily currently on a citalopram. Patient had a fall last week during kickball game. Patient telling me that she been having of racing heartbeat, jittery feeling inside, shaking feeling outside. Patient reported that the chest pain and lightheadedness and headache are steady, no aggravating or relieving factors. Related Data Home Medications Medication Instructions Recorded Confirmed gatifloxacin 0.5 % eye drops 1 drp ophthalmic (eye) DIRECTED 04/17/23 04/17/23 lifitegrast 5 % eye drops in a 1 drp ophthalmic (eye) DIRECTED 04/17/23 04/17/23 dropperette (Xiidra) loteprednol etabonate 0.38 % eye 1 drp ophthalmic (eye) DIRECTED 04/17/23 04/17/23 gel drops (Lotemax SM) Allergies Allergy/AdvReac Type Severity Reaction Status Date / Time Penicillins Allergy Mild Hives Verified 11/30/23 15:32 oseltamivir [From Tamiflu] Allergy Hallucinati Verified 11/30/23 15:32 ng Review of Systems Review of Systems: All systems reviewed & are unremarkable except as noted in HPI and below PMFSH Past Medical History Medical History Anxiety Patient denies significant medical history Regional enteritis of small bowel Surgical History Surgical History No pertinent past surgical history Family History Family History Grandparent Diabetes mellitus Hypertension Cerebrovascular accident Father Hypertension Sibling Hypothyroidism Social History Social History Smoking status: Never smoker Second hand tobacco smoke exposure: No Alcohol intake: current Alcohol use details: 2 per month Substance use: never Substance use type: does not use Living arrangements: with family Gender identity (if verbalized by the patient): Female Sexual Orientation (if Verbalized by the Patient): Straight or Heterosexual Spiritual care concerns: No Exam Narrative: General appearance: Well-developed, well-nourished Skin: Normal color Head: Normocephalic, nontraumatic Eyes: Clear conjunctiva ENT: Oropharynx normal, ears normal, nose normal Neck: Supple, nontender Chest and respiratory: Airway patent, no respiratory distress, no accessory muscle use Heart: Regular rate/rhythm Abdomen: Soft, nontender, no organomegaly, quiet bowel sounds Vascular: Normal peripheral pulses, normal capillary refill. 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
[2023-11-30 16:06] VITALS: BP 126/67; PULSE 81; RESP 22; O2SAT 98
[2023-11-30 16:22] LABS: Basophils Absolute Auto 0.1 K/mm3 (0.0-0.1); Basophils Percent Auto 0.5 % (0.2-1.2); Eosinophils Absolute Auto 0.1 K/mm3 (0-0.3); Eosinophils Percent Auto 0.8 % (0-4.4); Hematocrit 44.3 % (37.0-47.0); Hemoglobin 14.5 g/dL (12.0-15.0); Immature Granulocyte Absolute 0.04 K/mm3 (0.00-0.031); Immature Granulocyte Percent A 0.4 % (0-0.5); Lymphocytes Absolute Auto 2.02 K/mm3 (0.9-3.2); Lymphocytes Percent Auto 19.3 % (18.3-44.2); Mean Corpuscular HGB Conc 32.7 g/dl (32-36); Mean Corpuscular Hemoglobin 29.1 pg (26-34); Mean Platelet Volume 11.4 fl (7.4-10.4); Monocytes Absolute Auto 0.5 K/mm3 (0.1-0.6); Monocytes Percent Auto 4.4 % (2.6-8.5); Neutrophils Absolute Auto 7.8 K/mm3 (1.3-6.7); Neutrophils Percent Auto 74.6 % (45.5-73.1); Platelet Count Result 214 k/mm3 (150-375); Red Blood Count 4.98 M/mm3 (4.2-5.4); Red Cell Distribution Width 12.5 % (11.5-14.5); White Blood Count 10.5 K/mm3 (4.5-10.0)
[2023-11-30] MEDS: LORazepam (*CRX) 0.5 MG TABLET PO (16:32)
[2023-11-30 16:34] VITALS: BP 147/75; PULSE 84; RESP 16; O2SAT 100
[2023-11-30 16:34] LABS: Alanine Aminotransferase 14 U/L (6-35); Albumin Level 4.7 g/dL (3.5-5.1); Alkaline Phosphatase 94 U/L (38-126); Anion Gap 6 mmol/L (4-12); Aspartate Amino Transferase 22 U/L (14-36); Bilirubin,Total 0.7 mg/dL (0.2-1.3); Blood Urea Nitrogen 14 mg/dL (7-17); Calcium 9.5 mg/dL (8.4-10.2); Carbon Dioxide 26 mmol/L (22-30); Chloride 105 mmol/L (98-107); Estimated CRCL calculation 127 ml/min; Estimated Glomerular Filt Rate > 60; Glucose 94 mg/dL (65-110); Potassium 3.8 mmol/L (3.4-5.0); Sodium 137 mmol/L (137-145)
[2023-11-30 16:46] LABS: Troponin I < 0.012 ng/mL (0.000-0.034)
[2023-11-30 16:47] LABS: Appearance Urine Clear (Clear); Bacteria Urine None Seen /hpf; Bilirubin Urine Negative (Negative); Blood Urine Negative (Negative); Color Urine Yellow (Yellow); Glucose Urine UA Negative (Negative); Ketones Urine Negative (Negative); Leukocyte Esterase Ur Trace LEU/UL (Negative); Nitrate Urine Negative (Negative); Non Pathogenic Casts 0-2; Protein Urine Negative (Negative); RBC Urine 0-2 /hpf (0-2); Specific Grav Ur 1.012 (1.001-1.035); Squamous Epithelial Cell Urine Occasional /hpf (Few); Urobilinogen Urine 0.2 mg/dL (<2.0); WBC Urine 0-5 /hpf (0-3); pH Urine 7.5 (5.0-9.0)
[2023-11-30 16:48] LABS: Add Urine Microscopic? YES
[2023-11-30 17:03] VITALS: BP 131/74; PULSE 77; RESP 21; TEMP 36.4; O2SAT 100
== END 2023-11-30 17:06 | disposition home or self-care (01) ==
PROVIDERS: Emergency Provider Emergency Medicine; PCP Nurse Practitioner Family
DX: F41.9 Anxiety disorder, unspecified (principal)
CPT/HCPCS: 36415; 70450; 71045; 80053; 81001; 81025; 84443; 84484; 85025; 93005; 99284; A9270

== ENCOUNTER 2024-02-03 19:21 | Emergency (ER) | payer OTHER, SELFPAY ==
[2024-02-03 19:42] VITALS: BP 124/73; PULSE 85; RESP 16; TEMP 36.6; O2SAT 100
--- NOTE | 2024-02-03 20:08 | ED.ABDPAIN ---
HPI - Abdominal Pain General Chief Complaint: Urogenital-Female Stated Complaint: L SIDE/ABD PAIN Time Seen by Provider: 02/03/24 20:03 Source: patient, RN notes reviewed and old records reviewed Mode of arrival: ambulatory Limitations: no limitations History of Present Illness HPI narrative: 23-year-old female presents to the [facility] with left flank and left lower abdominal pain. Patient states that she woke up this morning with the discomfort, while playing kickball today the pain increased. Patient verbalized that she is concern for kidney stone ovarian cyst. Advised patient that we cannot workup for either of those in the [facility], offered to transfer patient to the ER which she politely declined at this time. Patient denies any fevers. Denies any urinary symptoms. States she had a normal bowel movement this morning Onset (ago): hour(s) Related Data Home Medications Medication Instructions Recorded Confirmed escitalopram oxalate 20 mg tablet 20 mg PO DAILY 02/03/24 02/03/24 Allergies Allergy/AdvReac Type Severity Reaction Status Date / Time Penicillins Allergy Mild Hives Verified 02/03/24 19:38 oseltamivir [From Tamiflu] Allergy Hallucinati Verified 02/03/24 19:38 ng Review of Systems Review of Systems: All systems reviewed & are unremarkable except as noted in HPI and below Constitutional: Constitutional: Reports no additional constitutional complaints Eyes: Eyes: Reports no additional eye complaints ENT: Reports system reviewed and no additional complaints, except as documented Cardiovascular: Cardiovascular: Reports no additional cardiovascular complaints, Denies chest pain and Denies dyspnea Respiratory: Respiratory: Reports no additional respiratory complaints, Denies chest congestion, Denies cough and Denies dyspnea Gastrointestinal: Gastrointestinal: Reports as per HPI, Reports abdominal pain, Denies nausea and Denies vomiting Musculoskeletal: Musculoskeletal: Reports no additional musculoskeletal complaints Integumentary/Breasts: Skin/Breast: Reports system reviewed and no additional complaints, except as docu Neurologic: Reports system reviewed and no additional complaints, except as documented Psychiatric: Psychiatric: Reports no additional psychiatric complaints Allergic/Immunologic: Allergic/Immunologic: Reports no additional allergic/immunologic complaints PMFSH Past Medical History Medical History Anxiety Patient denies significant medical history Regional enteritis of small bowel Surgical History Surgical History No pertinent past surgical history Family History Family History Grandparent Diabetes mellitus Hypertension Cerebrovascular accident Father Hypertension Sibling Hypothyroidism Social History Social History Smoking status: Never smoker Second hand tobacco smoke exposure: No Alcohol intake: current Alcohol use details: 2 per month Substance use: never Substance use type: does not use Living arrangements: with family Gender identity (if verbalized by the patient): Female Sexual Orientation (if Verbalized by the Patient): Straight or Heterosexual Spiritual care concerns: No Comments At the time of my signature, I reviewed and agree with the nursing past medical, surgical, social, and family history. There is no relevant family history pertinent to the patient complaint. Exam Const: General: cooperative, healthy appearing, comfortable, no acute distress, well developed, alert and well nourished Nutritional Appearance: well nourished Orientation/consciousness: patient oriented x3 Limitations: no limitations HENMT: Head: normal to inspection Ears: hearing grossly normal bilaterally and external ears normal Face/Nos
== END 2024-02-03 20:15 | disposition left against medical advice (07) ==
PROVIDERS: Emergency Provider Nurse Practitioner; PCP Nurse Practitioner Family
DX: R10.31 Right lower quadrant pain (principal); R10.32 Left lower quadrant pain; F41.9 Anxiety disorder, unspecified
CPT/HCPCS: 81003; 99212; G0463

== ENCOUNTER 2024-02-18 13:55 | Emergency (ER) | payer OTHER, SELFPAY ==
[2024-02-18 14:06] VITALS: BP 130/64; PULSE 77; RESP 16; TEMP 36.1; O2SAT 99
--- NOTE | 2024-02-18 14:12 | ED.EAR ---
HPI - Ear Problem General Chief complaint: Upper Respiratory Infection Stated complaint: bilateral ear discomfort,sorethroat Time Seen by Provider: 02/18/24 14:16 Source: patient, RN notes reviewed and old records reviewed Mode of arrival: ambulatory Limitations: no limitations History of Present Illness HPI Narrative: 23-year-old female presents to the [facility] with complaints of bilateral ear discomfort and a sore throat x 4 days. Patient states on the 1st day of her symptoms she went to another urgent care and was prescribed a Medrol Dosepak. States she tried taking Mucinex with no relief Patient reports that her daughter had similar symptoms but was better in just 2-3 days. Reports has been also had similar symptoms was better in 2 days. Treatment prior to arrival: other (Medrol Dosepak) Related Data Home Medications Medication Instructions Recorded Confirmed escitalopram oxalate 20 mg tablet 20 mg PO DAILY 02/03/24 02/18/24 Allergies Allergy/AdvReac Type Severity Reaction Status Date / Time Penicillins Allergy Mild Hives Verified 02/18/24 14:24 oseltamivir [From Tamiflu] Allergy Hallucinati Verified 02/18/24 14:24 ng Review of Systems Review of Systems: All systems reviewed & are unremarkable except as noted in HPI and below Constitutional: Constitutional: Reports no additional constitutional complaints Eyes: Eyes: Reports no additional eye complaints ENT: Reports as per HPI, Reports otalgia and Reports sore throat Cardiovascular: Cardiovascular: Reports no additional cardiovascular complaints, Denies chest pain and Denies dyspnea Respiratory: Respiratory: Reports no additional respiratory complaints, Denies chest congestion, Denies cough and Denies dyspnea Gastrointestinal: Gastrointestinal: Reports no additional gastrointestinal complaints, Denies abdominal pain, Denies nausea and Denies vomiting Musculoskeletal: Musculoskeletal: Reports no additional musculoskeletal complaints Integumentary/Breasts: Skin/Breast: Reports system reviewed and no additional complaints, except as docu Neurologic: Reports system reviewed and no additional complaints, except as documented Psychiatric: Psychiatric: Reports no additional psychiatric complaints Allergic/Immunologic: Allergic/Immunologic: Reports no additional allergic/immunologic complaints PMFSH Past Medical History Medical History Anxiety Patient denies significant medical history Regional enteritis of small bowel Surgical History Surgical History No pertinent past surgical history Family History Family History Grandparent Diabetes mellitus Hypertension Cerebrovascular accident Father Hypertension Sibling Hypothyroidism Social History Social History Smoking status: Never smoker Second hand tobacco smoke exposure: No Alcohol intake: current Alcohol use details: 2 per month Substance use: never Substance use type: does not use Living arrangements: with family Gender identity (if verbalized by the patient): Female Sexual Orientation (if Verbalized by the Patient): Straight or Heterosexual Spiritual care concerns: No Comments At the time of my signature, I reviewed and agree with the nursing past medical, surgical, social, and family history. There is no relevant family history pertinent to the patient complaint. Exam Const: General: cooperative, healthy appearing, comfortable, no acute distress, well developed, alert and well nourished Nutritional Appearance: well nourished Orientation/consciousness: patient oriented x3 Limitations: no limitations HENMT: Head: normal to inspection Ears: hearing grossly normal bilaterally, external ears normal, EAC's normal, mastoids normal, no periauricular ad
== END 2024-02-18 14:50 | disposition home or self-care (01) ==
PROVIDERS: Emergency Provider Nurse Practitioner; PCP Nurse Practitioner Family
DX: R09.82 Postnasal drip (principal); J06.9 Acute upper respiratory infection, unspecified; J02.9 Acute pharyngitis, unspecified; Z20.822 Contact with and (suspected) exposure to COVID-19; F41.9 Anxiety disorder, unspecified
CPT/HCPCS: 87081; 87426; 87804; 87880; 99213; G0463

== ENCOUNTER 2024-05-31 12:47 | Emergency (ER) | payer OTHER, SELFPAY ==
[2024-05-31 12:57] VITALS: BP 110/73; PULSE 72; RESP 16; TEMP 36.6; O2SAT 100
[2024-05-31 13:11] LABS: EDUAAPPEAR Clear; EDUABILI Negative (Negative); EDUABLOOD Trace (Negative); EDUACOLOR1 Yellow; EDUAGLUCOSE Negative (Negative); EDUAKETONE Negative (Negative); EDUALEUKO Negative (Negative); EDUANITRATE Negative (Negative); EDUAPROTEIN Negative (Negative); EDUAUROBILI 0.2
--- NOTE | 2024-05-31 14:16 | ED.FEMALEGU ---
HPI - Female Genitourinary General Chief complaint: Urogenital-Female Stated complaint: UTI SYMPTOMS Time Seen by Provider: 05/31/24 13:15 Source: patient and RN notes reviewed Mode of arrival: ambulatory Limitations: no limitations History of Present Illness HPI Narrative: Patient presents today with a 2 day history of dysuria, frequency, cloudy urine, and suprapubic pain. No [id number] treatment prior to arrival. Patient has an IUD and does not menstruate. Related Data Home Medications Medication Instructions Recorded Confirmed escitalopram oxalate 20 mg tablet 20 mg PO DAILY 02/03/24 05/31/24 Allergies Allergy/AdvReac Type Severity Reaction Status Date / Time Penicillins Allergy Mild Hives Verified 05/31/24 13:14 oseltamivir [From Tamiflu] Allergy Hallucinati Verified 05/31/24 13:14 ng Review of Systems Review of Systems: CONSTITUTIONAL: Denies body aches, fever, chills, or sweats. EYES: Denies visual changes, redness, or discharge. ENT: Denies rhinorrhea, congestion, sore throat, or otalgia. CARDIOVASCULAR: Denies chest pain, palpitations, or edema. RESPIRATORY: Denies cough or dyspnea. GASTROINTESTINAL: Denies abdominal pain, nausea, vomiting, or diarrhea. GENITOURINARY: + dysuria, frequency, cloudy urine, suprapubic discomfort. SKIN: Denies rash, itching, or wounds. MUSCULOSKELETAL: Denies back pain, joint pain, or myalgia. NEUROLOGIC: Denies headache, numbness, tingling, or weakness. PSYCH: Denies depression or anxiety. [facility] Past Medical History Medical History Anxiety Patient denies significant medical history Regional enteritis of small bowel Surgical History Surgical History No pertinent past surgical history Family History Family History Grandparent Diabetes mellitus Hypertension Cerebrovascular accident Father Hypertension Sibling Hypothyroidism Social History Social History Smoking status: Never smoker Second hand tobacco smoke exposure: No Alcohol intake: current Alcohol use details: 2 per month Substance use: never Substance use type: does not use Living arrangements: with family Gender identity (if verbalized by the patient): Female Sexual Orientation (if Verbalized by the Patient): Straight or Heterosexual Spiritual care concerns: No Comments At time of signature, I have reviewed and agree with nursing past medical, surgical, social and family history unless otherwise noted. Please see nursing chart for further information. There is no relevant family history pertinent to the presenting complaint Exam Narrative: GENERAL: Well-appearing, well-nourished, and in no acute distress. HEAD: Normocephalic, atraumatic. EYES: EOMI. No redness or drainage. Conjunctivae normal. ENT: Mucous membranes pink and moist. NECK: Normal AROM. CHEST: No respiratory distress. Clear to auscultation. HEART: Regular rate and rhythm. No murmur appreciated. Normal peripheral pulses. ABDOMEN: Soft, nontender, nondistended, normal active bowel sounds. -CVAT MUSCULOSKELETAL: No bony tenderness. EXTREMITIES: Normal range of motion. No edema. SKIN: Warm, dry, no rash. Capillary refill normal. Normal skin turgor. NEURO: No focal deficits. Alert and oriented x3. Gait steady. PSYCH: Normal affect. No signs of depression or anxiety. Course Course Level of Care: Express Care Visit Vital Signs Vital signs: Vital Signs Temperature 97.9 F 05/31/24 12:57 Pulse Rate 72 05/31/24 12:57 Respiratory Rate 16 05/31/24 12:57 Blood Pressure 110/73 05/31/24 12:57 Pulse Oximetry 100 05/31/24 12:57 Temperature 97.9 F 05/31/24 12:57 Pulse Rate 72 05/31/24 12:57 Respiratory Rate 16 05/31/24 12:57
== END 2024-05-31 13:26 | disposition home or self-care (01) ==
PROVIDERS: Emergency Provider Nurse Practitioner; PCP Nurse Practitioner Family
DX: N39.0 Urinary tract infection, site not specified (principal); F41.9 Anxiety disorder, unspecified
CPT/HCPCS: 81003; 87086; 87088; 99213; G0463

== ENCOUNTER 2024-08-15 16:21 | Emergency (ER) | payer OTHER, SELFPAY ==
[2024-08-15 16:54] VITALS: BP 130/69; PULSE 90; RESP 16; TEMP 36.3; O2SAT 100
--- NOTE | 2024-08-15 18:05 | ED.URI ---
HPI - URI/Sore Throat General Chief Complaint: Upper Respiratory Infection Stated Complaint: CONGESTION/COUGH Time Seen by Provider: 08/15/24 17:50 Source: patient, RN notes reviewed and old records reviewed Mode of arrival: ambulatory Limitations: no limitations History of Present Illness HPI Narrative: 23-year-old female who presents to [facility] with complaints of 1.5 week duration of cough and cold symptoms reports that cough is dry has not been taking any type of decongestant or any of the vukp-[id number]-hzqwlyg medication for her symptoms. Patient reports that she has had some headaches but has migraine disorder and thought could be related to that. Patient reports history of exercise induced asthma, has not noted any wheezing or shortness of breath does feel like congestion going into chest now. MD elicited complaint: cough, rhinorrhea, nasal congestion and sinus pain Onset (ago): week(s) (1.5) Severity: moderate Description of mucous: clear Able to tolerate fluids by mouth: Yes Treatments prior to arrival: none Related Data Home Medications ?Medication ?Instructions ?Recorded ?Confirmed ?Last Taken ?Type escitalopram oxalate 20 mg tablet 20 mg PO DAILY 02/03/24 05/31/24 Unknown History Allergies Allergy/AdvReac Type Severity Reaction Status Date / Time Penicillins Allergy Mild Hives Verified 05/31/24 13:14 oseltamivir (From Tamiflu) Allergy Hallucinati Verified 05/31/24 13:14 ng Review of Systems Review of Systems: CONSTITUTIONAL: reports malaise, no chills, sweats, or fever. EYES: Denies visual changes, redness, or discharge. ENT: Reports rhinorrhea, congestion, sinus pain,no otalgia and no sore throat. CARDIOVASCULAR: Denies chest pain, palpitations, or edema. RESPIRATORY: Reports cough.? Denies dyspnea. GASTROINTESTINAL: Denies abdominal pain, nausea, vomiting, diarrhea SKIN: Denies rash or itching. MUSCULOSKELETAL: Denies myalgia. NEUROLOGIC: reports headache. All systems reviewed & are unremarkable except as noted in HPI and below PMFSH Past Medical History Medical History Anxiety Regional enteritis of small bowel Patient denies significant medical history Surgical History Surgical History No pertinent past surgical history Family History Family History Grandparent Diabetes mellitus Hypertension Cerebrovascular accident Father Hypertension Sibling Hypothyroidism Social History Social History Smoking status: Never smoker Second hand tobacco smoke exposure: No Alcohol intake: current Alcohol use details: 2 per month Substance use: never Substance use type: does not use Living arrangements: with family Gender identity (if verbalized by the patient): Female Sexual Orientation (if Verbalized by the Patient): Straight or Heterosexual Spiritual care concerns: No Comments At time of signature, agree with nursing past medical, surgical, social and family history. There is no relevant family history pertinent to the presenting complaint Exam Narrative: GENERAL: Well-appearing, well-nourished, and in no acute distress. HEAD: Normocephalic EYES: PERRLA, conjunctivae clear ENT: Nares clear, turbinates edematous and erythematous, clear discharge. Mucous membranes moist. TM pearly tyson with dull light reflex bilaterally; no tragal tenderness. Oropharynx erythematous without lesions. Tonsils not enlarged and without exudate, no drooling, no hoarseness, no trismus, uvula midline. NECK: Supple. No lymphadenopathy CHEST: Clear to auscultation, breath sounds equal. No wheezing, rhonchi, rales, or stridor. No respiratory distress, speaks in full sentences.dry cough noted [id number]% on room air HEART: Regular rate and rhythm. No murmur heard. SKIN: Warm, dry, no rash. NEURO: Alert and oriented x3. PSYCH: Normal mood and affect Course Course Emergency Course: Patient is aware of diagnosis, understands and agrees to treatment plan.? Anticipatory guidance given.? Patient agrees to follow-up as directed and is aware of reasons to seek care at the emergency department. Portions of this record may have been created with voice recognition software Level of Care: Express Care Visit Vital Signs Vital signs: Vital Signs Temperature 36.3 C L 08/15/24 16:54 Pulse Rate 90 08/15/24 16:54 Respiratory Rate 16 08/15/24 16:54 Blood Pressure 130/69 08/15/24 16:54 Pulse Oximetry 100 08/15/24 16:54 Temperature 36.3 C L 08/15/24 16:54 Pulse Rate 90 08/15/24 16:54 Respiratory Rate 16 08/15/24 16:54 Blood Pressure 130/69 08/15/24 16:54 Pulse Oximetry 100 08/15/24 16:54 Reviewed MDM - URI/Sore Throat MDM Narrative Medical decision making narrative: Differential diagnosis considered: Springer virus, strep pharyngitis, allergic rhinitis, upper respiratory tract infection, sinusitis, rhinosinusitis, nasopharyngitis. viral pharyngitis, otitis media, otitis externa, pneumonia, bronchitis, viral cough syndrome, viral syndrome, and influenza.? Exam findings show no acute concerns or changes; patient is non-toxic appearing and is in no distress.? Patient is appropriate for outpatient treatment and follow-up. Differential Diagnosis Differential diagnosis: Likely upper respiratory infection, sinusitis, viral infection and other (acute cough) Medical Records Attestation: I reviewed the patient's medical records. Lab Data Attestation: I reviewed the patient's lab results. Critical Care Time Critical Care Time Critical Care Time: No Discharge Plan Discharge Clinical Impression: Sinusitis, acute Qualifiers: Sinusitis location: pansinusitis Recurrence: non-recurrent Qualified Code(s): J01.40 - Acute pansinusitis, unspecified Cough Qualifiers: Cough type: acute Qualified Code(s): R05.1 - Acute cough Patient Disposition: Home, Self-Care Condition: Stable Instructions: Antibiotic Form, Sinusitis (ED) Additional Instructions: Increase fluids especially juices and water [id number]-neb-[id number] cough and cold medicine of your choice for your symptoms If your symptoms persist, change or worsen significantly before you can contact your personal physician then please, without delay, go to the emergency department for further evaluation. Follow-up with PCP in 7-10 days or sooner if needed Follow up with PCP soon in regards to your blood pressure which is elevated above threshold for referral. Blood pressure above 120/80 may indicate pre-hypertension. 130/69 Cough tablets as directed for cough--do not bite, chew or suck on--swallow whole heat to the face 20-30 minutes 4-6 times a day for pain Salt water gargles, throat lozenges or throat sprays as desired Antibiotic as directed--finished the medication Zyrtec Claritin or Lexis daily include plain Sudafed once in a.m. as decongestant Patient Language: Occitan Prescriptions: New azithromycin 250 mg tablet See Rx Instructions .ROUTE .COMPLEX Qty: 6 0RF Rx Instructions: For 250 mg dose pack: take 500 mg today (day 1), then 250 mg for 4 days (days 2-5) benzonatate 200 mg capsule 200 mg PO TID PRN (Reason: cough) Qty: 14 0RF No Action escitalopram oxalate 20 mg tablet 20 mg PO DAILY cephalexin 500 mg capsule 500 mg PO Q6H 7 Days Qty: 28 0RF Follow-up/Referrals: BINH,ALVIN SANZ [Primary Care Provider] - Time of Disposition: 18:22 Quality [place] Coma Scale Eyes: Open Verbal: Oriented and Alert Motor: Follows Commands [place] Coma Total Score: 15
== END 2024-08-15 18:25 | disposition home or self-care (01) ==
PROVIDERS: Emergency Provider Registered Nurse; PCP Nurse Practitioner Family
DX: J01.40 Acute pansinusitis, unspecified (principal); R05.1 Acute cough; F41.9 Anxiety disorder, unspecified
CPT/HCPCS: 99213; G0463

== ENCOUNTER 2024-09-12 12:16 | Emergency (ER) | payer OTHER, SELFPAY ==
[2024-09-12 12:22] VITALS: BP 132/69; PULSE 82; RESP 14; TEMP 36.3; O2SAT 100
--- NOTE | 2024-09-12 14:00 | PC.NURSE ---
pt states, i just got a call from [facility] and they gave me results on my ultrasound my pain has resolved now and I would prefer to follow up with my doctor . educated pt to return with any worsening symptoms and pt leaves ED with steady gait and no resp. distress.
== END 2024-09-12 14:00 | disposition left against medical advice (07) ==
LOC: ANHED 13:36
PROVIDERS: PCP Nurse Practitioner Family
DX: R10.9 Unspecified abdominal pain (principal)
CPT/HCPCS: 99199

== ENCOUNTER 2024-10-03 16:33 | Emergency (ER) | payer OTHER, SELFPAY ==
--- NOTE | 2024-10-03 16:36 | ED.EAR ---
HPI - Ear Problem General Chief complaint: Dizziness Stated complaint: EARACHE Time Seen by Provider: 10/03/24 16:50 Source: patient Mode of arrival: ambulatory Limitations: no limitations History of Present Illness HPI Narrative: Lance is a 24-year-old female patient presenting to the clinic today with complaints of an dizziness, bilateral ear pain, and sinus congestion. She reports symptoms have been going on for approximately 2 months. States that they thought she had sinus infection and she got azithromycin and the did not really help her symptoms. No fever or chills. Related Data Home Medications ?Medication ?Instructions ?Recorded ?Confirmed ?Last Taken ?Type escitalopram oxalate 20 mg tablet 20 mg PO DAILY 02/03/24 10/03/24 Unknown History Allergies Allergy/AdvReac Type Severity Reaction Status Date / Time Penicillins Allergy Mild Hives Verified 10/03/24 16:41 oseltamivir (From Tamiflu) Allergy Hallucinati Verified 10/03/24 16:41 ng Review of Systems Review of Systems: Pertinent positives per HPI. Patient denies any fever, chills, rash, headache, visual changes, shortness of breath, chest pain, palpitations, nausea, vomiting, diarrhea, constipation, abdominal pain, or any urinary issues. [facility]LY [facility] Past Medical History Medical History Anxiety Regional enteritis of small bowel Patient denies significant medical history Surgical History Surgical History No pertinent past surgical history Family History Family History Grandparent Diabetes mellitus Hypertension Cerebrovascular accident Father Hypertension Sibling Hypothyroidism Social History Social History Smoking status: Never smoker Second hand tobacco smoke exposure: No Alcohol intake: current Alcohol use details: 2 per month Substance use: never Substance use type: does not use Living arrangements: with family Gender identity (if verbalized by the patient): Female Sexual Orientation (if Verbalized by the Patient): Straight or Heterosexual Spiritual care concerns: No Comments At the time of my signature, I reviewed and agree with the nursing past medical, surgical, social, and family history. There is no relevant family history pertinent to the patient complaint. Exam Narrative: General: Well-developed, well nourished, in no apparent distress Head: Normocephalic, atraumatic Eyes: Pupils equally round and reactive to light bilaterally, EOM intact, sclera and conjunctive clear, no discharge, lids normal Ears: TMs intact and congested, ear canals clear, no drainage, grossly hearing normal. Nose: Nares patent, yellow nasal discharge, moderate inflammation, maxillary sinus tenderness. Mouth: Oral pharynx without lesions or masses, good dentition, MMM. Postnasal drip Neck: Supple, trachea midline, no enlargement of anterior or posterior cervical nodes, no thyroid masses or goiter palpable. Cardio: Regular rate and rhythm, s1 and s2 normal, no murmur appreciated. Resp: Clear to auscultation bilaterally, no rhonchi, rales, wheezing or rubs Course Course Emergency Course: Portions of this record may have been created with voice recognition software. Level of Care: Express Care Visit Vital Signs Vital signs: Vital Signs Temperature 36.8 C 10/03/24 16:46 Pulse Rate 72 10/03/24 16:46 Respiratory Rate 16 10/03/24 16:46 Blood Pressure 130/77 10/03/24 16:46 Pulse Oximetry 99 10/03/24 16:46 Temperature 36.8 C 10/03/24 16:46 Pulse Rate 72 10/03/24 16:46 Respiratory Rate 16 10/03/24 16:46 Blood Pressure 130/77 10/03/24 16:46 Pulse Oximetry 99 10/03/24 16:46 Vital signs reviewed Medical Decision Making MDM Narrative Medical decision making narrative: At the time of visit patient is resting comfortably on the exam table. Patient appears to be nontoxic. Plan: I suspect patient has acute rhinosinusitis/vertigo. Prescription for doxycycline and prednisone was sent to the pharmacy. Supportive measures were discussed with the patient and they voiced understanding discharge instructions and agrees to treatment plan. Return precautions reviewed Differential Diagnosis Differential Diagnosis: Otitis externa, otitis media, serous otitis, upper respiratory infection, cerumen impaction, eustachian tube dysfunction Vital Signs Vital Signs: Vital Signs Temperature 36.8 C 10/03/24 16:46 Pulse Rate 72 10/03/24 16:46 Respiratory Rate 16 10/03/24 16:46 Blood Pressure 130/77 10/03/24 16:46 Pulse Oximetry 99 10/03/24 16:46 Temperature 36.8 C 10/03/24 16:46 Pulse Rate 72 10/03/24 16:46 Respiratory Rate 16 10/03/24 16:46 Blood Pressure 130/77 10/03/24 16:46 Pulse Oximetry 99 10/03/24 16:46 Discharge Plan Discharge Clinical Impression: Acute rhinosinusitis, Vertigo Patient Disposition: Home, Self-Care Condition: Stable Instructions: Antibiotic Form, Vertigo (ED), Rhinosinusitis (ED) Additional Instructions: Take prescription medications only as prescribed-prednisone and the doxycycline Increase fluids and stay well hydrated Tylenol/motrin for pain/fever Flonase and OTC antihistamines as directed Vicks vapor rub to open sinuses Sinus rinses for congestion Cepacol spray, cough drops, throat lozenges, warm tea with honey/lemon, gargle salt water to soothe throat BRAT diet for diarrhea Clear liquids x 24 hours then advance as tolerated for nausea/vomiting Go to the ED if you develop a worsening in your condition- high fever not controlled by Tylenol or Motrin, dehydration, weakness, lethargy, shortness of breath, or chest pain. Follow up with your PCP in 3-5 days if symptoms persist. Patient Language: Nepali Prescriptions: New doxycycline monohydrate 100 mg capsule 100 mg PO BID 10 Days Qty: 20 0RF prednisone 20 mg tablet 40 mg PO DAILY 5 Days Qty: 10 0RF No Action escitalopram oxalate 20 mg tablet 20 mg PO DAILY Follow-up/Referrals: BINH,ALVIN SANZ [Primary Care Provider] - Time of Disposition: 17:16 Quality NIHSS Nursing Documentation ED NIHSS nursing documentation: reviewed/agree
[2024-10-03 16:46] VITALS: BP 130/77; PULSE 72; RESP 16; TEMP 36.8; O2SAT 99
== END 2024-10-03 17:24 | disposition home or self-care (01) ==
PROVIDERS: Emergency Provider Nurse Practitioner Family; PCP Nurse Practitioner Family
DX: J01.90 Acute sinusitis, unspecified (principal); R42 Dizziness and giddiness; F41.9 Anxiety disorder, unspecified
CPT/HCPCS: 99213; G0463

== ENCOUNTER 2025-01-04 15:31 | Emergency (ER) | payer OTHER, SELFPAY ==
[2025-01-04 15:48] VITALS: BP 121/74; PULSE 74; RESP 16; TEMP 36.4; O2SAT 98
[2025-01-04 16:35] LABS: EDCOVIDSCREEN Negative (Negative); EDINFLUASCREEN Negative (Negative); EDINFLUBSCREEN Negative (Negative); EDSTREPNEGPOS1 Negative (Negative)
--- NOTE | 2025-01-04 16:42 | ED_ITS ---
HPI - General Adult General Chief complaint: Upper Respiratory Infection Stated complaint: CONGESTION Source: patient Mode of arrival: ambulatory Limitations: no limitations History of Present Illness HPI narrative: Patient presents for evaluation of sick symptoms. Symptom onset today. Symptoms include sinus congestion, headache, sore throat, and muffled hearing in the ears. She had some nausea yesterday but that has since subsided. She denies any fever, chills, cough, shortness of breath, vomiting, diarrhea. Her child recently had similar symptoms and her developed similar symptoms today. Related Data Home Medications ?Medication ?Instructions ?Recorded ?Confirmed ?Last Taken ?Type escitalopram oxalate 20 mg tablet 20 mg PO DAILY 02/03/24 01/04/25 Unknown History Allergies Allergy/AdvReac Type Severity Reaction Status Date / Time Penicillins Allergy Mild Hives Verified 01/04/25 15:47 oseltamivir (From Tamiflu) Allergy Hallucinati Verified 01/04/25 15:47 ng Review of Systems Review of Systems: CONSTITUTIONAL: Denies fever, chills, or sweats. EYES: Denies visual changes, redness, or discharge. ENT: Reports sinus congestion, sore throat and muffled hearing bilaterally CARDIOVASCULAR: Denies chest pain, palpitations, or edema. RESPIRATORY: Denies cough or dyspnea. GASTROINTESTINAL: Reports recent nausea, none currently. Denies abdominal pain, vomiting, or diarrhea. GENITOURINARY: Denies dysuria or hematuria. SKIN: Denies rash or itching. MUSCULOSKELETAL: Denies back pain, joint pain, or myalgia. NEUROLOGIC: Reports headache. Denies numbness, dizziness, or weakness. PSYCHIATRIC: Denies anxiety or depression. ON LICENSE OF [facility] Past Medical History Medical History Anxiety Regional enteritis of small bowel Patient denies significant medical history Surgical History Surgical History No pertinent past surgical history Family History Family History Grandparent Diabetes mellitus Hypertension Cerebrovascular accident Father Hypertension Sibling Hypothyroidism Social History Social History Smoking status: Never smoker Second hand tobacco smoke exposure: No Alcohol intake: current Alcohol use details: 2 per month Substance use: never Substance use type: does not use Living arrangements: with family Gender identity (if verbalized by the patient): Female Sexual Orientation (if Verbalized by the Patient): Straight or Heterosexual Spiritual care concerns: No Exam Narrative: GENERAL: Well-appearing, well-nourished, and in no acute distress. HEAD: Normocephalic, atraumatic. EYES: PERRLA and EOMI. ENT: Nares clear, no rhinorrhea or epistaxis. Mucous membranes moist. Oropharynx without tonsillar hypertrophy exudate or other lesions. Bilateral TMs pearly tyson nonbulging NECK: Supple. No adenopathy or masses. No carotid bruits or JVD CHEST: Clear to auscultation. No respiratory distress. No wheezes rales or rhonchi HEART: Regular rate and rhythm. No murmur heard. Normal peripheral pulses. ABDOMEN: Soft, nontender, nondistended, normal active bowel sounds. EXTREMITIES: Normal range of motion. No edema. SKIN: Warm, dry, no rash. NEURO: No focal deficits. Alert and oriented x3. PSYCH: Normal mood and affect. Course Course Emergency Course: This is a 24-year-old female who presented for evaluation of sick symptoms. Strep, COVID, influenza were all negative. Exam is consistent with acute viral syndrome. OTC agents for symptom management. Increase hydration. Follow up with primary provider. Go to the ER for worsening symptoms. Patient in agreement with plan of care. Level of Care: Express Care Visit Vital Signs Vital signs: Vital Signs Temperature 36.4 C L 01/04/25 15:48 Pulse Rate 74 01/04/25 15:48 Respiratory Rate 16 01/04/25 15:48 Blood Pressure 121/74 01/04/25 15:48 Pulse Oximetry 98 01/04/25 15:48 Oxygen Delivery Room Air 01/04/25 15:48 Temperature 36.4 C L 01/04/25 15:48 Pulse Rate 74 01/04/25 15:48 Respiratory Rate 16 01/04/25 15:48 Blood Pressure 121/74 01/04/25 15:48 Pulse Oximetry 98 01/04/25 15:48 Oxygen Delivery Room Air 01/04/25 15:48 Medical Decision Making Vital Signs Vital Signs: Vital Signs Temperature 36.4 C L 01/04/25 15:48 Pulse Rate 74 01/04/25 15:48 Respiratory Rate 16 01/04/25 15:48 Blood Pressure 121/74 01/04/25 15:48 Pulse Oximetry 98 01/04/25 15:48 Oxygen Delivery Room Air 01/04/25 15:48 Temperature 36.4 C L 01/04/25 15:48 Pulse Rate 74 01/04/25 15:48 Respiratory Rate 16 01/04/25 15:48 Blood Pressure 121/74 01/04/25 15:48 Pulse Oximetry 98 01/04/25 15:48 Oxygen Delivery Room Air 01/04/25 15:48 Lab Data Labs: Lab Results 01/04/25 Range/Units 16:33 POC Influenza A Ag Negative (Negative) POC Influenza B Ag Negative (Negative) POC SARS CoV-2 Ag Negative (Negative) POC Grp A Strep Screen Negative (Negative) Discharge Plan Discharge Clinical Impression: Acute viral syndrome Patient Disposition: Home Condition: Stable Instructions: Antibiotic Form, Viral Syndrome (ED) Additional Instructions: CEPACOL LOZENGES SHOULD HELP SORE THROAT SUDAFED AND FLONASE SHOULD HELP WITH CONGESTION MAKE SURE TO DRINK PLENTY OF FLUIDS AND GET PLENTY OF REST Patient Language: Romanian Prescriptions: No Action escitalopram oxalate 20 mg tablet 20 mg PO DAILY Follow-up/Referrals: BINH,ALVIN SANZ [Primary Care Provider] - Time of Disposition: 16:39
== END 2025-01-04 16:43 | disposition home or self-care (01) ==
PROVIDERS: Emergency Provider Nurse Practitioner; PCP Nurse Practitioner Family
DX: B34.9 Viral infection, unspecified (principal); Z20.822 Contact with and (suspected) exposure to COVID-19; F41.9 Anxiety disorder, unspecified
CPT/HCPCS: 87081; 87426; 87804; 87880; 99213; G0463

== ENCOUNTER 2025-01-06 18:44 | Emergency (ER) | payer OTHER, SELFPAY ==
--- NOTE | 2025-01-06 18:49 | ED_ITS ---
HPI - General Adult General Chief complaint: Upper Respiratory Infection Stated complaint: Upper Respiratory Infection Time Seen by Provider: 01/06/25 18:49 Source: patient Mode of arrival: ambulatory Limitations: no limitations History of Present Illness HPI narrative: 24-year-old female patient presents to [facility] with complaints of cold symptoms. Patient was seen here 2 days ago was tested for COVID influenza and strep and everything came back negative. Patient states she is back today because she feels like a lot of her congestion is now down in her chest and that she she has an infection in her chest. Denies fevers body aches or chills. Patient states he has had a cough mostly at night. Patient states she feels rattling in her chest at times. Patient states she has been taking some over-t he-counter medicine as recommended from her last visit. Related Data Home Medications ?Medication ?Instructions ?Recorded ?Confirmed ?Last Taken ?Type escitalopram oxalate 20 mg tablet 20 mg PO DAILY 02/03/24 01/04/25 Unknown History Allergies Allergy/AdvReac Type Severity Reaction Status Date / Time Penicillins Allergy Mild Hives Verified 01/06/25 18:52 oseltamivir (From Tamiflu) Allergy Hallucinati Verified 01/06/25 18:52 ng Review of Systems Review of Systems: CONSTITUTIONAL: Denies fever, chills, or sweats. EYES: Denies visual changes, redness, or discharge. ENT: Denies rhinorrhea, congestion, sore throat, or otalgia. CARDIOVASCULAR: Denies chest pain, palpitations, or edema. RESPIRATORY: Denies cough or dyspnea. GASTROINTESTINAL: Denies abdominal pain, nausea, vomiting, or diarrhea. GENITOURINARY: Denies dysuria or hematuria. SKIN: Denies rash or itching. MUSCULOSKELETAL: Denies back pain, joint pain, or myalgia. NEUROLOGIC: Denies headache, numbness, or weakness. PSYCHIATRIC: Denies anxiety or depression. [facility] Past Medical History Medical History Anxiety Regional enteritis of small bowel Patient denies significant medical history Surgical History Surgical History No pertinent past surgical history Family History Family History Grandparent Diabetes mellitus Hypertension Cerebrovascular accident Father Hypertension Sibling Hypothyroidism Social History Social History Smoking status: Never smoker Second hand tobacco smoke exposure: No Alcohol intake: current Alcohol use details: 2 per month Substance use: never Substance use type: does not use Living arrangements: with family Gender identity (if verbalized by the patient): Female Sexual Orientation (if Verbalized by the Patient): Straight or Heterosexual Spiritual care concerns: No Comments At the time of my signature I agree with nursing past medical history, surgical, social, and family history. There is no relevant family history pertinent to the presenting complaint. Exam Narrative: GENERAL: Well-appearing, well-nourished, and in no acute distress. HEAD: Normocephalic, atraumatic. EYES: PERRLA and EOMI. ENT: Nares With erythema and edema noted to the right nare, no rhinorrhea or epistaxis. Mucous membranes moist. posterior pharynx with no erythema, tonsillar enlargement, exudates or lesions present. Bilateral TMs are clear no erythema or foreign bodies the canal. NECK: Supple. No lymphadenopathy CHEST: Clear to auscultation. No respiratory distress. HEART: Regular rate and rhythm. No murmur heard. Normal peripheral pulses. ABDOMEN: Soft, nontender, nondistended, normal active bowel sounds. EXTREMITIES: Normal range of motion. No edema. SKIN: Warm, dry, no rash. NEURO: No focal deficits. Alert and oriented x3. Course Course Level of Care: Express Care Visit Vital Signs Vital signs: Vital Signs Temperature 36.4 C 01/06/25 18:52 Pulse Rate 86 01/06/25 18:52 Respiratory Rate 16 01/06/25 18:52 Blood Pressure 125/80 01/06/25 18:52 Pulse Oximetry 100 01/06/25 18:52 Temperature 36.4 C 01/06/25 18:52 Pulse Rate 86 01/06/25 18:52 Respiratory Rate 16 01/06/25 18:52 Blood Pressure 125/80 01/06/25 18:52 Pulse Oximetry 100 01/06/25 18:52 Vital signs reviewed. Medical Decision Making MDM Narrative Medical decision making narrative: Discussed with patient that her lung sounds are clear today her heart tones sound good. We could retest her but I do not think it is going to change any of her plan of care. Discussed with patient we will provide her some Tessalon Perles to help with the coughing but ultimately she has a springtime cold and will take some time to get over. Discussed with her that viruses can last up to 10 days. It is important that she continues to use [id number] remedies to help with her symptoms until they have resolved. Patient verbalized understanding denies any other questions or concerns at this time. Differential Diagnosis Differential Diagnosis: Differential diagnosis: Allergic rhinitis, chronic sinusitis, tonsillitis, acute sinusitis, infectious mononucleosis, seasonal influenza, pertussis, diphtheria, meningococcal disease, viral syndrome, viral bronchitis, RSV, COVID- 19 Vital Signs Vital Signs: Vital Signs Temperature 36.4 C 01/06/25 18:52 Pulse Rate 86 01/06/25 18:52 Respiratory Rate 16 01/06/25 18:52 Blood Pressure 125/80 01/06/25 18:52 Pulse Oximetry 100 01/06/25 18:52 Temperature 36.4 C 01/06/25 18:52 Pulse Rate 86 01/06/25 18:52 Respiratory Rate 16 01/06/25 18:52 Blood Pressure 125/80 01/06/25 18:52 Pulse Oximetry 100 01/06/25 18:52 Critical Care Time Critical Care Time Critical Care Time: No Discharge Plan Discharge Clinical Impression: Viral URI with cough Patient Disposition: Home Condition: Stable Instructions: Antibiotic Form, Viral Syndrome (ED) Additional Instructions: Viral illness may last between 7-12days; antibiotic is NOT recommended at this time. Recommend antihistamine such as Benadryl at night time and Claritin/Zyrtec/Lexis during the day Cough syrup may cause drowsiness; avoid driving or take it at night time. Use inhaler as needed for cough, wheezing, shortness of breath or chest tightness. Also, recommend symptomatic treatment includes: rest, fluids, and increase humidity of the air at home. Recommend Acetaminophen or nonsteroidal anti-inflammatory agents (NSAIDs) as directed in the bottle to reduce fever and/pain/headache. Avoid smoking/second-hand smoke. Limit visits to areas with large crowds. Please schedule a follow-up visit with your personal physician for further evaluation and treatment within 3-5days. Including recheck and discussion of your blood pressure. If your symptoms persist, change or worsen significantly before you can contact your personal physician then please, without delay, go to the emergency department for further evaluation. Patient Language: Urdu Prescriptions: New benzonatate 200 mg capsule 200 mg PO TID PRN (Reason: cough) 10 Days Qty: 30 0RF No Action escitalopram oxalate 20 mg tablet 20 mg PO DAILY Follow-up/Referrals: BINH,ALVIN SANZ [Primary Care Provider] - Time of Disposition: 18:59
[2025-01-06 18:52] VITALS: BP 125/80; PULSE 86; RESP 16; TEMP 36.4; O2SAT 100
== END 2025-01-06 19:02 | disposition home or self-care (01) ==
PROVIDERS: Emergency Provider Nurse Practitioner Family; PCP Nurse Practitioner Family
DX: J06.9 Acute upper respiratory infection, unspecified (principal)
CPT/HCPCS: 99213; G0463

== ENCOUNTER 2025-02-23 13:07 | Emergency (ER) | payer OTHER, SELFPAY ==
--- NOTE | ~2025-02-23 | XR_ITS ---
EXAM/PROCEDURE: XR abdomen/kub 1V - 02/23/2025 13:28 CDT HISTORY: 24 years old Female with Right Flank pain COMPARISON: None available. TECHNIQUE: AP view(s) of the abdomen. FINDINGS: The bowel gas pattern is normal. There is no evidence for obstruction. No free intraperitoneal air is identified on this supine radiograph. The visualized soft tissue shadows are unremarkable. No gross bony abnormalities are seen. IUD seen. Visualized portions of lung bases are clear. IMPRESSION: No acute process. Reviewed, dictated and finalized at location A. IMPRESSION: No acute process.
--- NOTE | 2025-02-23 13:13 | ED.FEMALEGU ---
HPI - Female Genitourinary General Chief complaint: Abdominal Pain Stated complaint: Right Side Pain Related Data Home Medications ?Medication ?Instructions ?Recorded ?Confirmed ?Last Taken ?Type escitalopram oxalate 20 mg tablet 20 mg PO DAILY 02/03/24 02/23/25 Unknown History Allergies Allergy/AdvReac Type Severity Reaction Status Date / Time Penicillins Allergy Mild Hives Verified 02/23/25 13:21 oseltamivir (From Tamiflu) Allergy Hallucinati Verified 02/23/25 13:21 ng PMFSH Past Medical History Medical History Anxiety Regional enteritis of small bowel Patient denies significant medical history Surgical History Surgical History No pertinent past surgical history Family History Family History Grandparent Diabetes mellitus Hypertension Cerebrovascular accident Father Hypertension Sibling Hypothyroidism Social History Social History Smoking status: Never smoker Second hand tobacco smoke exposure: No Alcohol intake: current Alcohol use details: 2 per month Substance use: never Substance use type: does not use Living arrangements: with family Gender identity (if verbalized by the patient): Female Sexual Orientation (if Verbalized by the Patient): Straight or Heterosexual Spiritual care concerns: No Discharge Plan Discharge Patient Language: Yoruba Prescriptions: No Action escitalopram oxalate 20 mg tablet 20 mg PO DAILY benzonatate 200 mg capsule 200 mg PO TID PRN (Reason: cough) 10 Days Qty: 30 0RF Follow-up/Referrals: BINH,ALVIN SANZ [Primary Care Provider] -
[2025-02-23 13:16] VITALS: BP 120/73; PULSE 73; RESP 16; TEMP 36.2; O2SAT 73
[2025-02-23 13:25] LABS: BEDSIDEPREGUCG Negative (Negative)
[2025-02-23 13:26] LABS: EDUAAPPEAR Clear; EDUABILI Negative (Negative); EDUABLOOD Negative (Negative); EDUACOLOR1 Yellow; EDUAGLUCOSE Negative (Negative); EDUAKETONE Negative (Negative); EDUALEUKO Trace (Negative); EDUANITRATE Negative (Negative); EDUAPROTEIN Negative (Negative); EDUAUROBILI 0.2
--- NOTE | 2025-02-23 13:31 | ED_ITS ---
HPI - General Adult General Chief complaint: Abdominal Pain Stated complaint: Right Side Pain Time Seen by Provider: 02/23/25 13:22 Mode of arrival: ambulatory Limitations: no limitations History of Present Illness HPI narrative: 24-year-old female presents with concern for right flank pain this started suddenly today around 10 30. She reports sharp intermittent pain that is a 9/10. Reports between instances of sharp pain she has a dull ache. She denies dysuria, hematuria, urgency, frequency. She denies fever, aches, chills, sweats. She reports nausea without vomiting. She denies constipation. She reports over last few days she has had mild diarrhea. She denies history of kidney stones. She reports she was diagnosed with mono 4 weeks ago. MD complaint: Right flank pain Related Data Home Medications ?Medication ?Instructions ?Recorded ?Confirmed ?Last Taken ?Type escitalopram oxalate 20 mg tablet 20 mg PO DAILY 02/03/24 02/23/25 Unknown History Allergies Allergy/AdvReac Type Severity Reaction Status Date / Time Penicillins Allergy Mild Hives Verified 02/23/25 13:21 oseltamivir (From Tamiflu) Allergy Hallucinati Verified 02/23/25 13:21 ng Review of Systems Review of Systems: CONSTITUTIONAL: Denies malaise, chills, sweats, or fever. EYES: Denies visual changes, redness, or discharge. CARDIOVASCULAR: Denies chest pain, palpitations, or edema. RESPIRATORY: Denies cough or dyspnea. GASTROINTESTINAL: Reports right flank pain that radiates to the right abdomen. Reports nausea. Denies general abdominal pain, vomiting, bloody, or mucous stools. Reports mild diarrhea GENITOURINARY: Denies dysuria or hematuria. Reports right flank pain SKIN: Denies rash or itching. MUSCULOSKELETAL: Denies back pain, joint pain, or myalgia. Reports right flank pain NEUROLOGIC: Denies numbness, weakness, or headache. All systems reviewed & are unremarkable except as noted in HPI and below PMFSH Past Medical History Medical History Anxiety Regional enteritis of small bowel Patient denies significant medical history Surgical History Surgical History No pertinent past surgical history Family History Family History Grandparent Diabetes mellitus Hypertension Cerebrovascular accident Father Hypertension Sibling Hypothyroidism Social History Social History Smoking status: Never smoker Second hand tobacco smoke exposure: No Alcohol intake: current Alcohol use details: 2 per month Substance use: never Substance use type: does not use Living arrangements: with family Gender identity (if verbalized by the patient): Female Sexual Orientation (if Verbalized by the Patient): Straight or Heterosexual Spiritual care concerns: No Comments At time of signature, agree with nursing past medical, surgical, social and family history. There is no relevant family history pertinent to the presenting complaint Exam Narrative: GENERAL: Well-appearing, well-nourished, and in no acute distress. HEAD: Normocephalic, atraumatic. EYES: PERRLA, sclera clear ENT: Nares clear. Mucous membranes moist. NECK: Supple. CHEST: No respiratory distress. Speaks in full sentences. HEART: Regular rate and rhythm. No murmur heard. Normal peripheral pulses. ABDOMEN: Soft, mild right upper quadrant tenderness, nondistended, normal active bowel sounds, no palpable masses. No CVA tenderness SKIN: Warm, dry, no visible rash. NEURO: Alert and oriented x3. PSYCH: Normal mood and affect Course Course Emergency Course: Discussed exam findings, x-ray results with patient. I told the patient I was unable to determine if this could be kidney stones or gallstones or other gallbladder or kidney problems. I offered transfer to emergency room for further evaluation. 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 Anticipatory guidance given. Patient agrees to follow-up as directed and is aware of reasons to seek care at the emergency department. Portions of this record may have been created with voice recognition software Level of Care: Express Care Visit Vital Signs Vital signs: Vital Signs Temperature 97.2 F L 02/23/25 13:16 Pulse Rate 73 02/23/25 13:16 Respiratory Rate 16 02/23/25 13:16 Blood Pressure 120/73 02/23/25 13:16 Pulse Oximetry 73 L 02/23/25 13:16 Temperature 97.2 F L 02/23/25 13:16 Pulse Rate 73 02/23/25 13:16 Respiratory Rate 16 02/23/25 13:16 Blood Pressure 120/73 02/23/25 13:16 Pulse Oximetry 73 L 02/23/25 13:16 Reviewed. Medical Decision Making MDM Narrative Medical decision making narrative: The patient was evaluated by myself in the express care. History is obtained from patient who is an independent historian and physical exam was performed.? Available medical records were reviewed at this time. ? Exam findings show no acute concerns or changes; patient is non-toxic appearing and is in no distress. Patient is appropriate for outpatient treatment and follow-up. ? I have evaluated and discussed social determinants of health with the patient that could potentially impact subsequent diagnosis and treatment plans. ? All questions were answered to the patient's satisfaction. Vital Signs Vital Signs: Vital Signs Temperature 97.2 F L 02/23/25 13:16 Pulse Rate 73 02/23/25 13:16 Respiratory Rate 16 02/23/25 13:16 Blood Pressure 120/73 02/23/25 13:16 Pulse Oximetry 73 L 02/23/25 13:16 Temperature 97.2 F L 02/23/25 13:16 Pulse Rate 73 02/23/25 13:16 Respiratory Rate 16 02/23/25 13:16 Blood Pressure 120/73 02/23/25 13:16 Pulse Oximetry 73 L 02/23/25 13:16 Lab Data Labs: Lab Results 02/23/25 Range/Units 13:23 POC Urine Color Yellow POC Urine Clarity Clear POC Urine pH 7.0 POC Ur Specif [place] 1.020 POC Urine Protein Negative (Negative) POC Ur Glucose (UA) Negative (Negative) POC Urine Ketones Negative (Negative) POC Urine Blood Negative (Negative) POC Urine Nitrite Negative (Negative) POC Urine Bilirubin Negative (Negative) POC Urine Urobilinogen 0.2 POC U Leukocyte Esteras Trace (Negative) POC Urine HCG, Qual Negative (Negative) Imaging Data My impression: Images reviewed, interpreted by radiologist, agree, see report. Critical Care Time Critical Care Time Critical Care Time: No Discharge Plan Discharge Clinical Impression: Acute flank pain Patient Disposition: Home Condition: Stable Instructions: How to Strain Your Urine (ED), Flank Pain (ED) Additional Instructions: 1) Please follow-up with your primary care doctor in the next 1-2 days. 2) If you have any worsening of symptoms or any other urgent concerns please go to the ER. 3) Please take medications as prescribed and continue taking your home m edications as usual. 4) Please read and follow information included in discharge instructions. Patient Language: Czech Prescriptions: New hydrocodone-acetaminophen 5-325 mg tablet 1 tablet PO Q6H PRN (Reason: pain) Qty: 8 0RF tamsulosin [Flomax] 0.4 mg capsule 0.4 mg PO DAILY Qty: 5 0RF ondansetron 4 mg tablet,disintegrating 4 mg PO Q6H PRN (Reason: nausea and vomiting) Qty: 6 0RF No Action escitalopram oxalate 20 mg tablet 20 mg PO DAILY benzonatate 200 mg capsule 200 mg PO TID PRN (Reason: cough) 10 Days Qty: 30 0RF Follow-up/Referrals: BINH,ALVIN SANZ [Primary Care Provider] - Time of Disposition: 13:59
--- NOTE | 2025-02-23 14:01 | PC.NURSE ---
[employer] reviewed test results and discussed potential transfer to ER. Pt does not wish to be transferred to ER at this time and states that she will follow up with her PCP on Wednesday. [employer] WORKER discussed signs/symptoms that would warrant ER visit. Pt verbalized understanding.
== END 2025-02-23 14:10 | disposition home or self-care (01) ==
PROVIDERS: Emergency Provider Nurse Practitioner; PCP Nurse Practitioner Family
DX: R10.9 Unspecified abdominal pain (principal)
CPT/HCPCS: 74018; 81003; 81025; 99213; G0463

== ENCOUNTER 2025-05-16 19:24 | Emergency (ER) | payer OTHER, SELFPAY ==
--- NOTE | 2025-05-16 19:27 | ED.GENADULT ---
HPI - General Adult General Chief complaint: Urogenital-Female Stated complaint: UTI SYMPTOMS Time Seen by Provider: 05/16/25 19:27 Source: patient Mode of arrival: ambulatory Limitations: no limitations History of Present Illness HPI narrative: Pt is a 24 y/o female presenting with c/o UTI sx. Sx reported include dysuria x 1 week, lower back pain and suprapubic pressure for the last few days. Voices concern due to hematuria today. Denies concern for STI or . Reports IUD, LMP was prior to IUD insertion 3 years ago. No tx initiated [employer]. No additional complaints. Related Data Home Medications ?Medication ?Instructions ?Recorded ?Confirmed ?Last Taken ?Type escitalopram oxalate 20 mg tablet 20 mg PO DAILY 02/03/24 05/16/25 Unknown History Allergies Allergy/AdvReac Type Severity Reaction Status Date / Time Penicillins Allergy Mild Hives Verified 05/16/25 19:31 oseltamivir (From Tamiflu) Allergy Hallucinati Verified 05/16/25 19:31 ng Review of Systems Review of Systems: CONSTITUTIONAL: Denies body aches, fever, chills, or sweats. EYES: Denies visual changes, redness, or discharge. ENT: Denies rhinorrhea, congestion, sore throat, or otalgia. CARDIOVASCULAR: Denies chest pain, palpitations, or edema. RESPIRATORY: Denies cough or dyspnea. GASTROINTESTINAL: Denies abdominal pain, nausea, vomiting, or diarrhea. GENITOURINARY: Reports dysuria, hematuria. SKIN: Denies rash, itching, or wounds. MUSCULOSKELETAL: Reports low back pain NEUROLOGIC: Denies headache, numbness, tingling, or weakness. PSYCH: Denies depression or anxiety. All systems reviewed & are unremarkable except as noted in HPI and below ( HPI) [facility] Past Medical History Medical History Anxiety Regional enteritis of small bowel Patient denies significant medical history Surgical History Surgical History No pertinent past surgical history Family History Family History Grandparent Diabetes mellitus Hypertension Cerebrovascular accident Father Hypertension Sibling Hypothyroidism Social History Social History (Reviewed 08/12/25 @ 11:32 by PIPO Portillo Smoking status: Never smoker Second hand tobacco smoke exposure: No Alcohol intake: current Alcohol use details: 2 per month Substance use: never Substance use type: does not use Living arrangements: with family Gender identity (if verbalized by the patient): Female Sexual Orientation (if Verbalized by the Patient): Straight or Heterosexual Spiritual care concerns: No Exam Narrative: GENERAL: Well-appearing, well-nourished, and in no acute distress. HEAD: Normocephalic, atraumatic. EYES: EOMI. No redness or drainage. Conjunctivae normal. NECK: Normal AROM. Supple. CHEST: No respiratory distress. HEART: Regular rate ABDOMEN: Soft, nontender, nondistended, normal active bowel sounds. no CVAT EXTREMITIES: Normal range of motion. SKIN: Warm, dry, no rash. Capillary refill normal. Normal skin turgor. NEURO: No focal deficits. Alert and oriented x3. Gait steady. PSYCH: Normal affect. No signs of depression or anxiety. : External Female Exam: normal external appearance Speculum Exam - Vagina: vaginal bleeding Speculum Exam - Cervix: Other cervical findings present (IUD strings visualized) Course Course Level of Care: Express Care Visit Vital Signs Vital signs: Vital Signs Temperature 97.4 F L 05/16/25 19:39 Pulse Rate 87 05/16/25 19:39 Respiratory Rate 05/16/25 19:39 Blood Pressure 123/82 05/16/25 19:39 Pulse Oximetry 99 05/16/25 19:39 Temperature 97.4 F L 05/16/25 19:39 Pulse Rate 87 05/16/25 19:39 Respiratory Rate 05/16/25 19:39 Blood Pressure 123/82 05/16/25 19:39 Pulse Oximetry 99 05/16/25 19:39 Medical Decision Making [facility] Narrative Medical decision making narrative: Aware of need to call OBGYN tomorrow morning to inform them of bleeding--strict GO TO ER precautions discussed at length Vital Signs Vital Signs: Vital Signs Temperature 97.4 F L 05/16/25 19:39 Pulse Rate 87 05/16/25 19:39 Respiratory Rate 18 05/16/25 19:39 Blood Pressure 123/82 05/16/25 19:39 Pulse Oximetry 99 05/16/25 19:39 Temperature 97.4 F L 05/16/25 19:39 Pulse Rate 87 05/16/25 19:39 Respiratory Rate 18 05/16/25 19:39 Blood Pressure 123/82 05/16/25 19:39 Pulse Oximetry 99 05/16/25 19:39 Lab Data Labs: Lab Results 05/16/25 Range/Units 19:39 POC Urine Color Yellow POC Urine Clarity Clear POC Urine pH 7.0 POC Ur Specif [facility] 1.020 POC Urine Protein Negative (Negative) POC Ur Glucose (UA) Negative (Negative) POC Urine Ketones Negative (Negative) POC Urine Blood 2+ (Negative) POC Urine Nitrite Negative (Negative) POC Urine Bilirubin Negative (Negative) POC Urine Urobilinogen 0.2 POC U Leukocyte Esteras Negative (Negative) Discharge Plan Discharge Clinical Impression: Dysuria, Abnormal vaginal bleeding Patient Disposition: Home Condition: Stable Instructions: Antibiotic Form, Dysuria (ED) Patient Language: [place] Prescriptions: New nitrofurantoin monohyd/m-cryst [Macrobid] 100 mg capsule 100 mg PO Q12H 5 Days Qty: 10 0RF Rx Instructions: must administer with a meal/food No Action escitalopram oxalate 20 mg tablet 20 mg PO DAILY omeprazole 20 mg capsule,delayed release(DR/EC) 20 mg PO DAILY Qty: 30 3RF Follow-up/Referrals: BINH,ALVIN SANZ [Primary Care Provider] - 05/17/25 Time of Disposition: 19:51
[2025-05-16 19:39] VITALS: BP 123/82; PULSE 87; RESP 18; TEMP 36.3; O2SAT 99
[2025-05-16 19:41] LABS: EDUAAPPEAR Clear; EDUABILI Negative (Negative); EDUABLOOD 2+ (Negative); EDUACOLOR1 Yellow; EDUAGLUCOSE Negative (Negative); EDUAKETONE Negative (Negative); EDUALEUKO Negative (Negative); EDUANITRATE Negative (Negative); EDUAPH 7.0; EDUAPROTEIN Negative (Negative); EDUASPGRAVITY 1.020; EDUAUROBILI 0.2
[2025-05-16 19:47] LABS: BEDSIDEPREGUCG Negative (Negative)
== END 2025-05-16 19:57 | disposition home or self-care (01) ==
PROVIDERS: Emergency Provider Registered Nurse; PCP Nurse Practitioner Family
DX: R30.0 Dysuria (principal); N93.9 Abnormal uterine and vaginal bleeding, unspecified; F41.9 Anxiety disorder, unspecified
CPT/HCPCS: 81003; 81025; 87086; 99213; G0463